=== PATIENT | female | born 1965 | race Caucasian/White ===

== ENCOUNTER → 2021-04-01 11:37 | Outpatient (BNVA) | payer MEDICARE, SELFPAY | PROVIDERS: Visit Provider Family Medicine | DX: M17.12 Unilateral primary osteoarthritis, left knee (principal); M16.0 Bilateral primary osteoarthritis of hip; M25.551 Pain in right hip; M25.552 Pain in left hip; M25.562 Pain in left knee | CPT/HCPCS: 73521; 73522; 73562 ==

== ENCOUNTER → 2021-06-15 14:17 | Outpatient (BNVA) | payer MEDICARE, SELFPAY | PROVIDERS: Referring Provider Family Medicine; Visit Provider Specialist | DX: M25.551 Pain in right hip (principal); M25.552 Pain in left hip; M16.0 Bilateral primary osteoarthritis of hip; Z98.890 Other specified postprocedural states | CPT/HCPCS: 73523 ==

== ENCOUNTER 2021-07-13 09:17 | Outpatient (CLI) | payer MEDICARE, SELFPAY ==
--- NOTE | 2021-07-13 09:21 | XR_ITS ---
WS: [id number] Exam: XR knees AP WB w LT lmt ORTH Date/Time of Exam: 07/13/2021 9:37 AM Reason For Exam: M25.569 - Pain in unspecified knee There is moderate tricompartmental degenerative change of the left knee most marked involving the med ial joint compartment. No fracture or dislocation. No joint effusion. AP view the right knee shows mi ld degenerative changes in the medial and lateral joint compartments. XR/XR knees AP WB w LT lmt ORTH IMPRESSION: 1. Moderate tricompartmental DJD of the left knee. No fracture or joint effusio n.
== END 2021-07-13 09:18 | disposition home or self-care (01) ==
LOC: RAD 09:20
PROVIDERS: PCP Family Medicine; Visit Provider Specialist
DX: M17.12 Unilateral primary osteoarthritis, left knee (principal)
CPT/HCPCS: 73560; 73565

== ENCOUNTER → 2021-07-21 09:24 | Outpatient (BNVA) | payer MEDICARE, SELFPAY | PROVIDERS: PCP Family Medicine; Referring Provider Specialist; Visit Provider Anesthesiology Pain Medicine | DX: G89.29 Other chronic pain (principal); M17.12 Unilateral primary osteoarthritis, left knee; M16.0 Bilateral primary osteoarthritis of hip; M43.26 Fusion of spine, lumbar region | CPT/HCPCS: 99204 ==

== ENCOUNTER → 2021-08-03 13:00 | Outpatient (BNVA) | payer MEDICARE, SELFPAY | PROVIDERS: PCP Family Medicine; Visit Provider Anesthesiology Pain Medicine | DX: Z87.891 Personal history of nicotine dependence (principal); M16.0 Bilateral primary osteoarthritis of hip | CPT/HCPCS: 20610; 77002; J1030; J3490 ==

== ENCOUNTER → 2021-09-01 10:11 | Outpatient (BNVA) | payer MEDICARE, SELFPAY | PROVIDERS: PCP Family Medicine; Visit Provider Anesthesiology Pain Medicine | DX: G89.29 Other chronic pain (principal); M16.0 Bilateral primary osteoarthritis of hip; M17.12 Unilateral primary osteoarthritis, left knee; M43.26 Fusion of spine, lumbar region; Z87.891 Personal history of nicotine dependence | CPT/HCPCS: 99214 ==

== ENCOUNTER → 2021-09-30 10:45 | Outpatient (BNVA) | payer MEDICARE, SELFPAY | PROVIDERS: PCP Family Medicine; Visit Provider Family Medicine | DX: I10 Essential (primary) hypertension (principal); E66.9 Obesity, unspecified; Z98.1 Arthrodesis status; Z90.49 Acquired absence of other specified parts of digestive tract; Z98.890 Other specified postprocedural states | CPT/HCPCS: 80053; 80061; 84443; 85025 ==

== ENCOUNTER 2022-01-28 07:25 | Outpatient (CLI) | payer MEDICARE, SELFPAY ==
--- NOTE | 2022-01-28 07:31 | MM_ITS ---
WS: [id number] BILATERAL SCREENING DIGITAL BREAST TOMOSYNTHESIS MAMMOGRAM WITH CAD HISTORY: SCREENING COMPARISON: None available. Bilateral CC and MLO views with tomosynthesis and synthetic mammography submitted. Computer aided det ection analyzed. Breast composition: The breasts are almost entirely fatty. No suspicious masses, microcalcifications or architectural distortion. MM/[place] [id number] IMPRESSION: BI-RADS: 1-Negative FOLLOW UP: 1 Year Follow-up
== END 2022-01-28 07:26 | disposition home or self-care (01) ==
LOC: RAD 07:26
PROVIDERS: PCP Family Medicine; Visit Provider Family Medicine
DX: Z12.31 Encounter for screening mammogram for malignant neoplasm of breast (principal)
CPT/HCPCS: 77063; 77067

== ENCOUNTER → 2022-06-14 10:42 | Outpatient (BNVA) | payer MEDICARE, SELFPAY | PROVIDERS: PCP Family Medicine; Visit Provider Specialist | DX: M16.11 Unilateral primary osteoarthritis, right hip (principal) | CPT/HCPCS: 73502; 99214 ==

== ENCOUNTER 2022-07-13 10:55 | Observation (INO) | payer MEDICARE, SELFPAY ==
[2022-07-05 08:19] VITALS: BMI 32.5
--- NOTE | 2022-07-05 08:52 | P.ANESASSM_ITS ---
Pre-Anesthetic Assessment Height/Weight: Height 1.7 m Weight 94.347 kg Preop Diagnosis: Severe degenerative osteoarthritis right hip Operation Date: 07/13/22 07:00 Proposed Procedures p : RIGHT TOTAL HIP ARTHROPLASTY 34487 M16.9(Right) - Faith Red MD Familial anesthetic complications: None Social No alcohol and No tobacco Exam alert, oriented x 3, clear to auscultation bilaterally and regular rate & rhythm Airway Mallampati: Class II Dentition: full Pulmonary None reported CV/HEM Hypertension None reported Hepatic None reported GI None reported Metabolic None reported Musc/skel Lower Back Pain and Osteoarthritis/DJD Anesthetic Plan ASA status: 2 Anesthesia: Regional (specify below) Other: spinal Risk of > 500 ml blood loss (7ml/kg in children): No Medications/Allergies Home Medications Medication Instructions Recorded Confirmed Last Taken Type gabapentin 600 mg tablet See Rx Instructions .Route 06/22/22 07/05/22 07/05/22 Rx .COMPLEX #90 tabs Allergies Allergy/AdvReac Type Severity Reaction Status Date / Time No Known Allergies Allergy Verified 06/14/22 10:37 [facility] Anesthesia Surgical History H/O discectomy H/O spinal fusion History of appendectomy History of oophorectomy Social History Smoking and tobacco status: former smoker Quit status (tobacco): has quit using tobacco Year quit tobacco: 2006 Former quit date comment: smoked 2-3 PPD x 30 yrs Second hand smoke exposure: Yes Alcohol intake: current Alcohol intake frequency: few times a week Alcohol type: hard liquor Desire information about alcohol rehabilitation?: No Counseling given: No Lives independently: Yes Household members: significant other Marital status: Life Partner Current occupational status: disabled History of recent travel: No Current gender identity: Female Special wilfredo needs: No Agree to transfusion: Yes Data Anesthesia Cardiac Studies: No Data to Display
[2022-07-05 09:06] LABS: Add Urine Microscopic? NO; Charge for UA Resulting for Rev
[2022-07-05 09:11] LABS: Bilirubin Urine Neg (Negative); Blood Urine Neg (Negative); Glucose Urine UA Norm (Normal); Ketones Urine Negative (Negative); Leukocyte Esterase Urine Negative (Negative); Nitrate Urine Negative (Negative); Protein Urine Neg (Negative); Urine Appearance Clear (CLEAR); Urine Color Yellow (Yellow); Urobilinogen Urine Norm (Negative); pH Urine 5 (5-7)
[2022-07-05 09:14] LABS: Basophils % 0.6 %; Eosinophils # 0.1 10^3/uL (0.0-0.8); Eosinophils % 1.9 %; Hematocrit 45.9 % (37.0-47.0); Hemoglobin 14.4 g/dL (11.5-15.3); Lymphocytes # 2.8 10^3/uL (0.8-4.8); Lymphocytes % 40.6 %; Mean Corpuscular HGB Conc 31.4 g/dL (30.0-36.0); Mean Corpuscular Hemoglobin 27.6 pg (28.0-34.0); Mean Corpuscular Volume 88.1 fl (81-99); Mean Platelet Volume 12.7 fL (7.4-10.4); Monocytes # 0.4 10^3/uL (0.2-0.9); Monocytes % 6.1 %; Neutrophils # 3.46 10^3/uL (1.8-7.7); Neutrophils % 50.7 %; Nucleated Red Blood Cells % 0 %; Platelet Count 203 10^3/cmm (130-400); Red Blood Count 5.21 10^6/uL (4.1-5.3); Red Cell Distribution Width 14.6 % (12.1-15.1); White Blood Count 6.8 10^3/uL (4.0-10.0)
[2022-07-05 09:25] LABS: Alanine Aminotransferase 12 U/L (0-33); Albumin Level 4.4 g/dL (3.5-5.2); Alkaline Phosphatase 88 U/L (35-105); Aspartate Amino Transferase 15 U/L (0-32); Blood Urea Nitrogen 20 mg/dL (6-20); Calcium 9.6 mg/dL (8.5-10.5); Carbon Dioxide 26 mmol/L (22-29); Chloride 105 mmol/L (98-107); Globulin 2.5 g/dL (1.3-4.6); Glomerular Filtration Rate 85.9 mL/min (90-130); Glucose 99 mg/dL (65-115); Osmolality Calculated 297 mOsm/kg (285-295); Sodium 142 mmol/L (136-145); Total Bilirubin 0.6 mg/dL (0.15-1.2); Total Protein 6.9 g/dL (6.6-8.7)
[2022-07-13] VITALS (15 sets, daily range): BP systolic 102–147; BP diastolic 68–102; PULSE 55–68; RESP 12–18; TEMP 36.1–36.6; O2SAT 95–100; BMI 32.5
[2022-07-13] MEDS: acetaminophen 1,000 MG/100 ML PIGGYBACK 400 MG IV ×3 (06:20→22:01)
[2022-07-13] MEDS: sodium chloride 0.9% 1,000 ML 30 ML IV (06:20)
[2022-07-13] MEDS: CELEcoxib 200 mg Capsule 400 MG PO (06:30)
--- NOTE | 2022-07-13 07:00 | P.HPUD_ITS ---
Surgery/Procedure H&P Update DATE OF PROCEDURE: July 13, 2022 DATE H&P PERFORMED: 06/14/22 H&P UPDATE INFORMATION: I have reviewed H&P completed within last 30 days, I have examined patient prior to procedure, No changes to prior documentation and H&P is in [facility] EMR on date indicated PREOP DIAGNOSIS: Severe degenerative osteoarthritis right hip PLANNED PROCEDURE: Operation Date: 07/13/22 07:00 Proposed Procedures p : RIGHT TOTAL HIP ARTHROPLASTY 26759 M16.9(Right) - Faith Red MD Related Problem List Diagnoses (1) Osteoarthritis of right hip: Qualifiers: Osteoarthritis type: primary Qualified Code(s): M16.11 - Unilateral primary osteoarthritis, right hip
--- NOTE | 2022-07-13 07:42 | P.ANESUD_ITS ---
Pre-Anesthetic Update Pre-Anesthetic Assessment: Date of Surgery/Procedure: 07/13/22 Preop Ramya gnosis: Severe degenerative osteoarthritis right hip Proposed Procedure: Operation Date: 07/13/22 07:00 Proposed Procedures p : RIGHT TOTAL HIP ARTHROPLASTY 95433 M16.9(Right) - Faith Red MD Any changes to Pre-Anesthetic Assessment?: No Last Intake: Intake Last Liquid Date 07/12/22 Last Liquid Time 19:00 Last Solid Date 07/12/22 Last Solid Time 19:00 Vitals: Temperature 97 F L 07/13/22 06:45 Temperature Source Temporal Artery S can 07/13/22 06:45 Pulse Rate 68 07/13/22 06:45 Pulse Rhythm 07/13/22 06:45 Pulse Strength 3+ Normal 07/13/22 06:45 Respiratory Rate 18 07/13/22 06:45 Blood Pressure 147/102 07/13/22 06:45 Blood Pressure Amber n 117 07/13/22 06:45 Pulse Oximetry 97 07/13/22 06:45 Oxygen Delivery Me thod 07/13/22 06:45 Exam: Pre-Anes Outpt Exam: alert, oriented x 3, clear to auscultation bilaterally and regular rate & rhythm Cardiac Studies: No Data to Display
[2022-07-13] MEDS: ceFAZolin 2,000 MG in sodium chloride 0.9% (plus) 50 ML 100 MG IV ×3 (08:12→23:53)
[2022-07-13] MEDS: ceFAZolin 1,000 mg SDV 1000 MG IRRIGATION (09:03)
[2022-07-13] MEDS: vancomycin 1,000 MG SDV 1000 MG XX (09:03)
[2022-07-13] MEDS: tranexamic acid 1,000 mg/10mL SDV 1000 MG IV (09:50)
--- NOTE | 2022-07-13 10:14 | XR_ITS ---
WS: [id number] Pelvis, AP view, 07/13/2022 Clinical Data: S/P CANDIE Comparison: Pelvis and right hip, 06/14/2022 Findings: The right hip arthroplasty is in good position. No periprosthetic fractures or loosening is seen. The re is severe osteoarthritis of the left hip with sclerosis, cyst formation and narrowing. There is a posterior lumbosacral fusion unchanged. XR/XR pelvis 1-2V* [id number] Impression: Stable right hip arthroplasty.
--- NOTE | 2022-07-13 10:57 | PM.OP ---
Operative Report Date of procedure: July 13, 2022 Pre-op diagnosis: Severe degenerative osteoarthritis right hip Post-op diagnosis: 1) Severe degenerative osteoarthritis right hip 2) Large lipoma Post-op findings: 1) Severe degenerative osteoarthritis with large osteophytes and very limited range of motion of the hip even after anesthetic. 2) Large lipoma Procedure done: 1) Right total hip arthroplasty 2) Excision lipoma right hip Implants: The [place] total hip system with the following implants: A 52 mm by E Trident II solid back acetabular shell, an MDM cementless liner 42 mm inner diameter by E alpha code and Accolade II size 5 with 127 degree neck angle hip stem with a 28 mm outer diameter +0 mm neck offset and a latter-day X3 insert size 28 mm inner diameter by 42E Specimens removed/disposition: Lipoma sent to pathology for analysis Pathology: Frozen section appeared consistent with lipoma per pathology Surgeon: Faith Red Mail Service Coordinator: [facility] operating room technicians Anesthesia: MAC (Spinal, ASA 2) Estimated blood loss (mL): 500 IV fluids (mL): 1,300 Urine output (mL): 200 Complications: None Findings: Large lipoma lateral over the right hip requiring excision. This was sent to pathology. Severe degenerative osteoarthritis with large osteophytes and essentially no range of motion of the hip due to osteophytes and severe degenerative osteoarthritis. Following the surgical procedure, the hip was stable to external rotation. It was also stable at 90 degrees of flexion with 80 degrees of internal rotation and 30 degrees of adduction. It was stable to toe hang as well. Condition: stable Disposition: PACU (Then to floor for postoperative rehabilitation and pain management) Brief History: This is an established 56 year old female patient here today for right total hip arthroplasty. Patient was evaluated over a year ago by Dr. Red and was told she was a candidate for a right total hip arthroplasty at that time. She states she has lost approximately 50lbs in preparation for her total hip arthroplasty. She is ready to proceed with surgery, and when she was seen in the office, consents were signed and questions were answered. Upon arrival to clinic patient was utilizing a cane. She states her pain is worse with walking, sitting and standing. She has tried a hip injection in the past with relief for only a few weeks. Consents were signed and the patient was scheduled for surgery. Procedure: Patient was brought to the operating theater.? She was transferred to the operating room table.? The patient had a spinal anesthesia with MAC, ASA 2 uneventfully.? Following administration of adequate anesthesia, the patient was placed in full lateral position and held in position with a pegboard.? The patient's right lower extremity was then prepped and draped in usual fashion utilizing DuraPrep.? It was draped free.? Following prepping and draping, a surgical pause was performed. At the time of surgical pause, we identified the site and side of surgery.? We also identified the patient and preoperative surgical markings.? Confirmation was made of equipment availability.? Additionally, the patient's preoperative IV antibiotic, Ancef 2 g was confirmed as being given in a timely fashion and being the appropriate antibiotic.? She received TXA 1 g preoperatively as well 1 g postoperatively. Following the surgical pause, an incision was made centering over the patient's greater trochanter continuing proximally and distally as necessary to allow access to the hip joint.? Dissection continued through skin and soft tissues using a scalpel, and hemostasis was obtained using electrocautery. There was a large soft tissue mass that appeared consistent with lipoma. This was removed en julissa and sent for frozen section to pathology. The pathologist called into the room and stated that there did not appear to be any issues of concern. The tensor fascia domitila was identified and incised longitudinally.? Sciatic nerve was identified and protected throughout the surgical procedure.? A Charnley U retractor was placed after the tensor fascia domitila had been incised longitudinally, and the sciatic nerve had been identified.? The piriformis muscle was identified and tagged. Piriformis muscle along with the remaining short external rotators were then incised from the posterior aspect of the hip joint. These were retracted posteriorly. ? The capsule was entered in a T-type fashion with the edges being tagged.? Large osteophytes were removed from superior and posterior acetabulum. These actually encased the femoral head. The hip was then dislocated.? The head was noted to be very deformed with significant loss of bone and cartilage.? Following hip dislocation, a femoral neck osteotomy was accomplished in the appropriate position.? We then evaluated the acetabulum. Following femoral neck osteotomy, the femur was retracted anteriorly.? Soft tissues were retracted, and further large osteophytes were removed both anteriorly and posteriorly. Soft tissues were removed from within the acetabulum prior to the reaming process.? We then began reaming.? We deepened the acetabulum utilizing a smaller reamer.? Evaluation of the acetabulum was accomplished, and we were able to ream to 51 mm to allow for a size 52 mm acetabular shell. The acetabular component was impacted into position.? It was noted that the acetabular component matched the bony anatomy.? The MDM cementless liner was impacted into position and care was taken to assure that it completely seated.? Attention was directed to the proximal femur.? The proximal femur was lifted out of the wound with difficulty.? A canal finder was passed, and we then used the reamer to lateralize.? We then began broaching. We broached sequentially and a size 5 gave excellent fit and fill.? The calcar was reamed using the calcar reamer. With the size 5 broach, trial reduction was accomplished initially with a size +0 mm offset femoral head.? The patient was stable with this construct, and with this in place, we had the above stabilities. At that time, we felt that we had restored normal leg lengths.? We also felt that we had excellent stability noted above. Therefore, trial components were removed after the hip was dislocated.? The size 5 Accolade II 127 degree neck angle hip stem was impacted into position without difficulty and onto this was placed a +0 mm offset by 28 mm outer diameter femoral head inside of the MDM size 42E insert with a 28 mm inner diameter.? With this construct, we had the above-noted stability.? The stem was noted to seat nicely prior to placement of the femoral head.? The wound was copiously irrigated with Betadine.? At this time, with all components in appropriate position, the hip was reduced.? Following reduction of the prosthesis once again, we confirmed the stability of the hip.? Leg lengths were also felt to be satisfactory. Being satisfied with the prosthesis, attention was directed to closure.? Closure was accomplished with 0 Vicryl in the capsular tissues.? Piriformis was reattached with 0 Vicryl as well.? Tensor fascia domitila was closed with 0 Vicryl in an interrupted fashion.? The subcutaneous tissues were closed with 2-0 Monocryl.? Vancomycin powder and a Gelfoam thrombin mixture was placed into the wound as well.? The skin was closed with 3-0 Monocryl followed by Dermabond, Prinestorm, and Issac.? The patient was placed in an abduction pillow.?The patient was then rolled onto her back.? She was returned the Recovery Room in a satisfactory condition and will be discharged to the floor for postoperative rehabilitation and pain management.? There were no complications. Related Problem List Diagnoses (1) Osteoarthritis of right hip:
--- NOTE | 2022-07-13 11:07 | SUR.PHASEI ---
1036 PT TO PACU 5 PT AWAKE ALERT TALKATIVE, VSS MONITOR SR TO SB WITH NO ECTOPY, PT WAS A SPINAL ANESTHESIA, PT HAS NORMAL SENSATION TO LOWER HIP AREA, PT MOVES BILAT KNEES AND FEET STRONGLY, DISTAL RT PULSE STRONG AND REGULAR AND MARKED RT HIP INCISION D/I FIRST ICE TO HIP ABD PILLOW IN PLACE WITH MOYA TO DEPENDANT DRAINAGE STATLOCK TO LT INNER THIGH, SCD TO LT LOWER LEG. IV TO RT AC #20 PATENT TO 800ML NS AT KVO RATE PER GRAVITY, ID BRACELET TO RT WRIST, PT ID'D WITH 2 IDENTIFIERS, WARM BLANKETS X 4 TO PT, X RAY CALLED PT VERBALLY DENIES PAIN AND NAUSEA, ORIENTED X 3.
--- NOTE | 2022-07-13 11:50 | SUR.PHASEI ---
PT TO FLOOR 259-2 PER BED PT AWAKE ALERT ABLE TO MOVE BILAT TOES STRONGLY, RT HIP DRESSING AND PULSE UNCHANGED , HANDOFF AT BEDSIDE, PT TALKATIVE TO [place] AT BEDSIDE.
[2022-07-13] MEDS: oxyCODONE 5 mg IR Tab/Cap PO ×2 (14:04→19:00)
[2022-07-13] MEDS: gabapentin 300 mg Capsule 600 MG PO ×2 (14:05→19:56)
[2022-07-13] MEDS: chlorhexidine gluconate 0.12% Btl 473 mL 30 ML MUCOUS MEM ×3 (14:10→19:56)
--- NOTE | 2022-07-13 14:14 | ANE.PACU2 ---
Inpatient post-anesthesia follow up: Airway intact: Yes Vital signs: Temperature 97.3 F Pulse Rate 68 Respiratory Rate 16 Blood Pressure 128/78 Pulse Oximetry 99 Oxygen Delivery Me thod Room Air Oxygen Flow Rate Fraction of Inspir ed Oxygen Hydration adequate: Yes Nausea and vomiting: No Pain level: 2 Mental status: Baseline
[2022-07-13] MEDS: ondansetron 2 mg/ML SDV 2 mL 4 MG IVP (16:12)
[2022-07-13] MEDS: sennosides-docusate Tablet 2 TAB PO (17:20)
[2022-07-13] MEDS: calcium carbonate 500 mg Chew Tablet 1000 MG PO (17:21)
[2022-07-13] MEDS: iron polysaccharide complex 150 mg Capsule PO (17:21)
[2022-07-13] MEDS: mupirocin oint 22 gm 1 APPLIC NASAL (17:21)
[2022-07-13] MEDS: CELEcoxib 200 mg Capsule PO (19:55)
[2022-07-14 00:02] VITALS: BP 108/68; PULSE 62; RESP 16; TEMP 37; O2SAT 96
[2022-07-14 03:57] VITALS: BP 98/63; PULSE 68; RESP 16; TEMP 36.8; O2SAT 95
[2022-07-14 04:55] VITALS: RESP 16
[2022-07-14] MEDS: oxyCODONE 5 mg IR Tab/Cap PO ×2 (04:55→08:44)
[2022-07-14] MEDS: acetaminophen 1,000 MG/100 ML PIGGYBACK 400 MG IV (04:55)
--- NOTE | 2022-07-14 05:05 | PC.NURSE ---
Patient's barragan catheter removed approximately 0500. Patient tolerated well, catheter tip intact upon removal. Urine in barragan bag measured 400ml. Patient reported pain 8/10, oxycodone provided for pain relief. Patient reported no nausea or vomiting but has only tolerated clear liquids, has no report of appetite. Dressing site on right hip dry and intact upon inspection, ice applied. Patient currently resting in bed, two side rails up and call light within reach.
[2022-07-14 05:59] LABS: Basophils % 0.4 %; Eosinophils # 0.1 10^3/uL (0.0-0.8); Eosinophils % 1.6 %; Hematocrit 36.6 % (37.0-47.0); Hemoglobin 11.6 g/dL (11.5-15.3); Lymphocytes # 1.8 10^3/uL (0.8-4.8); Lymphocytes % 36.2 %; Mean Corpuscular HGB Conc 31.7 g/dL (30.0-36.0); Mean Corpuscular Hemoglobin 27.7 pg (28.0-34.0); Mean Corpuscular Volume 87.4 fl (81-99); Mean Platelet Volume 12.3 fL (7.4-10.4); Monocytes # 0.5 10^3/uL (0.2-0.9); Monocytes % 9.1 %; Neutrophils # 2.64 10^3/uL (1.8-7.7); Neutrophils % 52.5 %; Nucleated Red Blood Cells % 0 %; Platelet Count 137 10^3/cmm (130-400); Red Blood Count 4.19 10^6/uL (4.1-5.3); Red Cell Distribution Width 14.3 % (12.1-15.1)
[2022-07-14 06:24] LABS: Blood Urea Nitrogen 9 mg/dL (6-20); Carbon Dioxide 29 mmol/L (22-29); Chloride 106 mmol/L (98-107); Glomerular Filtration Rate 126.7 mL/min (90-130); Glucose 107 mg/dL (65-115); Osmolality Calculated 291 mOsm/kg (285-295); Sodium 141 mmol/L (136-145)
[2022-07-14 07:52] VITALS: PULSE 60; O2SAT 97
[2022-07-14 08:02] VITALS: BP 104/60; PULSE 60; RESP 17; TEMP 36.6; O2SAT 94
[2022-07-14] MEDS: cholecalciferol (vitamin D3) 1,000 unit Tablet 1000 UNIT PO (08:45)
[2022-07-14] MEDS: ceFAZolin 2,000 MG in sodium chloride 0.9% (plus) 50 ML 50 MG IV (08:45)
[2022-07-14] MEDS: iron polysaccharide complex 150 mg Capsule PO (08:46)
[2022-07-14] MEDS: gabapentin 300 mg Capsule 600 MG PO (08:46)
[2022-07-14] MEDS: multivitamin therapeutic Tablet 1 TAB PO (08:47)
[2022-07-14] MEDS: amlodipine 5 mg Tablet PO (08:47)
[2022-07-14] MEDS: CELEcoxib 200 mg Capsule PO (08:47)
[2022-07-14] MEDS: aspirin 325 mg EC Tablet PO (08:47)
[2022-07-14] MEDS: sennosides-docusate Tablet 2 TAB PO (08:47)
[2022-07-14] MEDS: mupirocin oint 22 gm 1 APPLIC NASAL (08:47)
[2022-07-14] MEDS: atorvastatin 40 mg Tablet 20 MG PO (08:47)
[2022-07-14] MEDS: calcium carbonate 500 mg Chew Tablet 1000 MG PO (08:48)
[2022-07-14] MEDS: chlorhexidine gluconate 0.12% Btl 473 mL 30 ML MUCOUS MEM (08:48)
--- NOTE | 2022-07-14 09:11 | PM.DCS ---
Discharge Providers Date of Admission: 07/13/22 10:55 Date of Discharge: July 14, 2022 Attending Provider at Admission: Faith Red MD Attending Provider at Discharge: Faith Red MD Primary Care Provider: Akilah Sims MD Diagnoses at Discharge Discharge Diagnosis (1) History of total right hip arthroplasty: Status: Acute Permanent problem details: Date of procedure: July 13, 2022 Diagnosis: 1) Severe degenerative osteoarthritis right hip; 2) Large lipoma Procedure done: 1) Right total hip arthroplasty; 2) Excision lipoma right hip Implants: The [employer] total hip system with the following implants: A 52 mm by E Trident II solid back acetabular shell, an MDM cementless liner 42 mm inner diameter by E alpha code and Accolade II size 5 with 127 degree neck angle hip stem with a 28 mm outer diameter +0 mm neck offset and a restorationist X3 insert size 28 mm inner diameter by 42E (2) Lipoma of right lower extremity: Status: Acute (3) Osteoarthritis of right hip: Status: Acute Qualifiers: Osteoarthritis type: primary Qualified Code(s): M16.11 - Unilateral primary osteoarthritis, right hip (4) Obesity (BMI 35.0-39.9 without comorbidity): Status: Acute Reason for Visit Reason for Visit: surgery Brief History: This is an established 56 year old female patient here today for right total hip arthroplasty. Patient was evaluated over a year ago by Dr. Red and was told she was a candidate for a right total hip arthroplasty at that time. She states she has lost approximately 50lbs in preparation for her total hip arthroplasty. She is ready to proceed with surgery, and when she was seen in the office, consents were signed and questions were answered. Upon arrival to clinic patient was utilizing a cane. She states her pain is worse with walking, sitting and standing. She has tried a hip injection in the past with relief for only a few weeks.? Consents were signed and the patient was scheduled for surgery. Hospital Course Hospital Course Patient was admitted following same-day surgery for right total hip arthroplasty. She was admitted under observation status, and she participated with physical therapy doing quite well. Her independence improved, and she was felt to be safe to be discharged to home. Her wound was benign. There was no evidence of DVT. She was neurologically intact. She was actually more mobile than she had been prior to her surgical procedure. She was felt to be safe for discharge to home and therefore, on postop day 1, the patient was discharged home to follow-up with me in the office as scheduled. Physical Exam Const: COMMON NORMALS: no acute distress, average body habitus, patient oriented x3 and alert GENERAL APPEARANCE: cooperative and comfortable ORIENTATION/CONSCIOUSNESS: Yes awake HENMT: COMMON NORMALS: normocephalic and atraumatic HEAD & SCALP: normocephalic and atraumatic Eye: GENERAL EYE: appearance normal, both eyes and all related structures Chest: COMMONS NORMALS: normal inspection of the chest Resp: COMMON NORMALS: normal respiratory effort EFFORT & INSPECTION: Yes able to speak in complete sentences and Yes symmetric chest movement Extremity: RIGHT LOWER EXTREMITY: Yes hip joint (No significant swelling or evidence of DVT) Right hip: Yes inspection (Thigh was soft with no ecchymosis.), Yes palpation (No tenderness to palpation.) and Yes neurovascular exam (Intact distally.) Neuro: COMMON NORMALS: patient oriented x3 SENSORIUM/ORIENTATION: Yes alert Psych: COMMON NORMALS: mental status grossly normal APPEARANCE: Yes grossly normal ATTITUDE: Yes calm and Yes engaged ATTENTION/CONCENTRATION: Yes attention grossly intact Skin: COMMON NORMALS: no rashes or lesions noted GENERAL SKIN EXAM: no rashes or lesions noted Urinary Catheter Management: Nayak: Cath Placed During This Visit: yes, but has since been removed by the nurse Reason for Continuing Indwelling Catheter: Other Urinary Catheter Date of Insertion: 07/13/22 Urinary Catheter Time of Insertion: 07:32 Date Urinary Catheter Removed: 07/14/22 Time Urinary Catheter Discontinued: 05:05 Discharge Data Studies Completed and Pending Completed Studies During Hospitalization Category Date Time Status XR pelvis 1-2V* 40615 Routine Exams 07/13/22 10:14 Completed Pending at discharge Category Date Time Status Pathology: Surgical [PTH] Routine Pth 07/13/22 08:21 Received Radiology Impressions Pelvis X-Ray 07/13/22 10:14 Impression: Stable right hip arthroplasty. Laboratory Results WBC 5.0 10^3/uL (4.0-10.0) 07/14/22 05:30 RBC 4.19 10^6/uL (4.1-5.3) 07/14/22 05:30 Hgb 11.6 g/dL (11.5-15.3) 07/14/22 05:30 Hct 36.6 % (37.0-47.0) L 07/14/22 05:30 MCV 87.4 fl (81-99) 07/14/22 05:30 MCH 27.7 pg (28.0-34.0) L 07/14/22 05:30 MCHC 31.7 g/dL (30.0-36.0) 07/14/22 05:30 RDW 14.3 % (12.1-15.1) 07/14/22 05:30 Plt Count 137 10^3/cmm (130-400) 07/14/22 05:30 MPV 12.3 fL (7.4-10.4) H 07/14/22 05:30 Neut % (Auto) 52.5 % 07/14/22 05:30 Lymph % (Auto) 36.2 % 07/14/22 05:30 Bates % (Auto) 9.1 % 07/14/22 05:30 Eos % (Auto) 1.6 % 07/14/22 05:30 Baso % (Auto) 0.4 % 07/14/22 05:30 Neut # (Auto) 2.64 10^3/uL (1.8-7.7) 07/14/22 05:30 Lymph # (Auto) 1.8 10^3/uL (0.8-4.8) 07/14/22 05:30 Bates # (Auto) 0.5 10^3/uL (0.2-0.9) 07/14/22 05:30 Eos # (Auto) 0.1 10^3/uL (0.0-0.8) 07/14/22 05:30 Baso # (Auto) 0.0 10^3/uL (0.0-0.1) 07/14/22 05:30 Nucleated RBC % (auto) 0 % 07/14/22 05:30 Nucleated RBCs # 0.0 /100WBC 07/14/22 05:30 Sodium 141 mmol/L (136-145) 07/14/22 05:30 Potassium 4.0 mmol/L (3.5-5.1) 07/14/22 05:30 Chloride 106 mmol/L (98-107) 07/14/22 05:30 Carbon Dioxide 29 mmol/L (22-29) 07/14/22 05:30 Anion Gap 10.0 (5-19) 07/14/22 05:30 BUN 9 mg/dL (6-20) 07/14/22 05:30 Creatinine 0.5 mg/dL (0.5-0.9) 07/14/22 05:30 GFR Calculation 126.7 mL/min (90-130) 07/14/22 05:30 Glucose 107 mg/dL (65-115) 07/14/22 05:30 Calculated Osmolality 291 mOsm/kg (285-295) 07/14/22 05:30 Calcium 8.0 mg/dL (8.5-10.5) L 07/14/22 05:30 Total Bilirubin 0.6 mg/dL (0.15-1.2) 07/05/22 08:15 AST 15 U/L (0-32) 07/05/22 08:15 ALT 12 U/L (0-33) 07/05/22 08:15 Alkaline Phosphatase 88 U/L (35-105) 07/05/22 08:15 Total Protein 6.9 g/dL (6.6-8.7) 07/05/22 08:15 Albumin 4.4 g/dL (3.5-5.2) 07/05/22 08:15 Globulin 2.5 g/dL (1.3-4.6) 07/05/22 08:15 Urine Color Yellow (Yellow) 07/05/22 08:15 Urine Appearance Clear (CLEAR) 07/05/22 08:15 Urine pH 5 (5-7) 07/05/22 08:15 Ur Specific [place] 1.020 (1.005-1.030) 07/05/22 08:15 Urine Protein Neg (Negative) 07/05/22 08:15 Urine Glucose (UA) Norm (Normal) 07/05/22 08:15 Urine Ketones Negative (Negative) 07/05/22 08:15 Urine Blood Neg (Negative) 07/05/22 08:15 Urine Nitrate Negative (Negative) 07/05/22 08:15 Urine Bilirubin Neg (Negative) 07/05/22 08:15 Urine Urobilinogen Norm mg/dL (Negative) 07/05/22 08:15 Ur Leukocyte Esterase Negative (Negative) 07/05/22 08:15 Vitals Last Vital Signs Temp 97.9 F 07/14/22 08:02 Pulse 60 07/14/22 08:02 Resp 17 07/14/22 08:02 BP 104/60 07/14/22 08:02 Pulse Ox 94 07/14/22 08:02 O2 Del Method 07/14/22 08:02 Discharge Plan Discharge Patient Disposition: Home Health Service Condition: Stable Prescriptions: New celecoxib 200 mg Capsule 200 mg PO Q12H 30 Days Qty: 60 0RF acetaminophen 500 mg Tablet 1,000 mg PO Q8H 30 Days Qty: 180 0RF aspirin 325 mg Tablet,Delayed Release (Dr/Ec) 325 mg PO DAILY 30 Days Qty: 30 0RF Rx Instructions: Meds to beds. Please deliver by 10:30 AM. oxycodone 5 mg tablet 5 mg PO Q4H PRN (Reason: pain) 7 Days Qty: 30 0RF Continued amlodipine 5 mg tablet 5 mg PO DAILY rosuvastatin 5 mg tablet 5 mg PO DAILY gabapentin 600 mg tablet See Rx Instructions .ROUTE .COMPLEX Qty: 90 1RF Dose Instruction: TAKE 1 TABLET BY MOUTH THREE TIMES DAILY Rx Instructions: TAKE 1 TABLET BY MOUTH THREE TIMES DAILY Discharge Orders: Discharge Order (Routine); Ordered 07/14/22 Ordered By: Faith Red Other Ambulatory Orders: DME: Walker (Order) Location: None Selected Ordered By: Faith Red Referrals: Faith Red MD [Physician] - 07/28/22 8:15 am Discharge Diet: Advance as tolerated and Usual diet Discharge Activity: Increase activity as tolerated, Limit activity as instructed, Use walker/crutches as instructed and As per PT/OT instructions Patient Instructions: Aspirin (By mouth), Oxycodone, Rapid Release (By mouth), Celecoxib (By mouth), Total Hip Replacement (GEN), Joint Replacement Stoplight, Opioid Safety Activity Restrictions/Additional Instructions: Posterior hip precautions. Weight-bear as tolerated. Maintain dressing until it comes off. You may shower, but do not soak your hip in water. Use walker or other assistive device per physical therapy. Discharge Attestations Time Spent in Discharge Care*: greater than 30 min Specific Discharge Activities: educating patient, documenting/other paperwork and evaluating patient/reviewing data Quality Metrics Clinical Quality Measures [ No reported AMI, CVA or VTE this stay] Coding Level of Care Code Acute [facility] note Diagnoses History of total right hip arthroplasty Z96.641 Lipoma of right lower extremity D17.23 Osteoarthritis of right hip M16.11 Osteoarthritis type: primary Obesity (BMI 35.0-39.9 without comorbidity) E66.9
--- NOTE | 2022-07-14 11:29 | PC.NURSE ---
patient verbalized understanding of discharge instructions, home medications, and follow up appointments. Dr. Red notified that patient would be unable to fill oxycodone prescription here, and she sent a new prescription to [facility]. Home delivered patients walker to the bedside.
[2022-07-14 12:50] VITALS: BP 104/60; PULSE 60; RESP 17; TEMP 36.6; O2SAT 94
== END 2022-07-14 12:00 | disposition home health service (06) ==
LOC: MEDSURG 10:55
PROVIDERS: Admitting Provider Specialist; PCP Family Medicine; Visit Provider Specialist
PROC: (CPT 27130; principal; 2022-07-13 07:00)
PROC: (CPT 27043; 2022-07-13 07:00)
DX: M16.11 Unilateral primary osteoarthritis, right hip (principal); R26.9 Unspecified abnormalities of gait and mobility; D17.23 Benign lipomatous neoplasm of skin and subcutaneous tissue of right leg; E66.9 Obesity, unspecified; Z68.32 Body mass index [BMI] 32.0-32.9, adult; I10 Essential (primary) hypertension
CPT/HCPCS: 27043; 27130; 36415; 51702; 72170; 80048; 80053; 81003; 85025; 88307; 88331; 97110; 97116; 97162; 97166; 97530; 97535; C1776; G0378; J0131; J0690; J2250; J2370; J2405; J2704; J3010; J3370; J3490; J7030

== ENCOUNTER → 2022-08-24 11:02 | Outpatient (BNVA) | payer MEDICARE, SELFPAY | PROVIDERS: PCP Family Medicine; Visit Provider Nurse Practitioner Family | DX: Z96.641 Presence of right artificial hip joint (principal) | CPT/HCPCS: 73502; 99024 ==

== ENCOUNTER 2022-09-24 14:57 | Emergency (ER) | payer MEDICARE, SELFPAY ==
[2022-09-24 14:58] VITALS: BP 168/90; PULSE 74; RESP 15; O2SAT 97
--- NOTE | 2022-09-24 15:15 | W.ED.DIZZY ---
HPI - Dizziness General: Chief Complaint: Dizziness Stated Complaint: HYPERTENSION Time Seen by Provider: 09/24/22 15:15 History of Present Illness: HPI Narrative: Ms. Still is a 56-year-old lady with history of hypertension presenting to the emergency department for headache with visual disturbance. She reports being at her baseline health and awoke this morning noting that her blood pressure was high and has a frontal constant headache associated with bilateral blurry vision. She took her amlodipine and then repeated doses with mild improvement in blood pressure however no improvement in another symptoms. Intensity symptoms is moderate. Course has persisted. No other specific changes in health, exacerbating, or alleviating factors identified. Onset (ago): hour(s) Timing: awoke with symptoms Severity: moderate Exacerbating factors: keeping eyes open Relieving factors: nothing Associated symptoms: Reports headache(s) and malaise Associated neuro symptoms: Reports visual changes; Deny confusion, difficulty speaking, diplopia, extremity weakness, facial numbness, facial weakness, gait changes or numbness in extremities Review of Systems General: Reports: 10 or more systems reviewed and unremarkable except in HPI and below Const: Reports: malaise Neuro: Reports: headache(s); Denies: numbness in extremities or confusion PFSH ED PFSH: Surgical History H/O discectomy H/O spinal fusion History of appendectomy History of oophorectomy Social History Smoking and tobacco status: former smoker Quit status (tobacco): has quit using tobacco Year quit tobacco: 2006 Former quit date comment: smoked 2-3 PPD x 30 yrs Second hand smoke exposure: Yes Alcohol intake: current Alcohol intake frequency: few times a week Alcohol type: hard liquor Desire information about alcohol rehabilitation?: No Counseling given: No Lives independently: Yes Household members: significant other Marital status: Life Partner Current occupational status: disabled Current gender identity: Female Special wilfredo needs: No Agree to transfusion: Yes Physical Exam Const: COMMON NORMALS: patient oriented x3 and alert GENERAL APPEARANCE: cooperative and well developed HENMT: COMMON NORMALS: normocephalic and atraumatic HEAD & SCALP: normocephalic and atraumatic THROAT: posterior oropharynx normal Eye: COMMON NORMALS: conjunctivae normal CONJUNCTIVA: Yes conjunctivae normal SCLERA: sclerae normal Neck/C-Spine: COMMON NORMALS: supple GENERAL: Yes trachea midline Resp: COMMON NORMALS: normal respiratory effort and clear to auscultation bilaterally EFFORT & INSPECTION: Yes able to speak in complete sentences AUSCULTATION: clear to auscultation bilaterally Cardio: COMMON NORMALS: regular rate and regular rhythm RATE: regular rate RHYTHM: regular rhythm GI: COMMON NORMALS: Soft to palpation PALPATION: Yes Soft to palpation and No Tenderness to palpation present (GI) Extremity: GENERAL: Yes normal exam except as noted and No edema Neuro: COMMON NORMALS: patient oriented x3, CN's II-XII intact bilaterally, moves all extremities, no focal motor deficits and no sensory deficits noted SENSORIUM/ORIENTATION: Yes alert and No Orientation impaired Psych: COMMON NORMALS: mental status grossly normal and Normal thought process present THOUGHT PROCESS: Normal thought process present Course Vital Signs: Vital signs: Vital Signs Pulse Rate 68 09/24/22 17:32 Respiratory Rate 16 09/24/22 17:32 Blood Pressure 142/86 09/24/22 17:32 Pulse Oximetry 97 09/24/22 17:32 Oxygen Delivery Me thod Room Air 09/24/22 16:15 MDM - Dizziness Medical Decision Making 57-year-old lady presenting to the emerged department for headache and dizziness as well as high blood pressure. Exam as above with no focal neurologic deficits, patient is nontoxic in appearance. No meningismus Labs with no significant hematologic or metabolic abnormalities. No UTI. Head CT with no acute intracranial pathology identified. Patient markedly improved with improvement in blood pressure and headache with migraine cocktail. Symptoms have essentially resolved. Most likely etiology of patient's symptoms is multifactorial including hypertension and complex headache. Plan to add hydralazine to patient's medication regimen as needed. The results of ED evaluation were discussed with the patient including prescriptions and/or symptomatic cares (if applicable) including appropriate and responsible use, followup plan, and return precautions. The patient verbalized understanding and felt safe for discharge. Medical Records I reviewed the patient's medical records. Lab Data I reviewed the patient's lab results. 09/24/22 15:16 09/24/22 15:[address] 09/24/22 15:33 IMPRESSION: No CT evidence of acute intracranial pathology. Laboratory Results WBC 5.8 10^3/uL (4.0-10.0) 09/24/22 15:16 RBC 4.91 10^6/uL (4.1-5.3) 09/24/22 15:16 Hgb 13.0 g/dL (11.5-15.3) 09/24/22 15:16 Hct 42.6 % (37.0-47.0) 09/24/22 15:16 MCV 86.8 fl (81-99) 09/24/22 15:16 MCH 26.5 pg (28.0-34.0) L 09/24/22 15:16 MCHC 30.5 g/dL (30.0-36.0) 09/24/22 15:16 RDW 14.7 % (12.1-15.1) 09/24/22 15:16 Plt Count 156 10^3/cmm (130-400) 09/24/22 15:16 MPV 11.5 fL (7.4-10.4) H 09/24/22 15:16 Neut % (Auto) 65.4 % 09/24/22 15:16 Lymph % (Auto) 25.6 % 09/24/22 15:16 [place] % (Auto) 6.9 % 09/24/22 15:16 Eos % (Auto) 1.4 % 09/24/22 15:16 Baso % (Auto) 0.5 % 09/24/22 15:16 Neut # (Auto) 3.81 10^3/uL (1.8-7.7) 09/24/22 15:16 Lymph # (Auto) 1.5 10^3/uL (0.8-4.8) 09/24/22 15:16 [place] # (Auto) 0.4 10^3/uL (0.2-0.9) 09/24/22 15:16 Eos # (Auto) 0.1 10^3/uL (0.0-0.8) 09/24/22 15:16 Baso # (Auto) 0.0 10^3/uL (0.0-0.1) 09/24/22 15:16 Nucleated RBC % (auto) 0 % 09/24/22 15:16 Nucleated RBCs # 0.0 /100WBC 09/24/22 15:16 Sodium 141 mmol/L (136-145) 09/24/22 15:16 Potassium 4.0 mmol/L (3.5-5.1) 09/24/22 15:16 Chloride 106 mmol/L (98-107) 09/24/22 15:16 Carbon Dioxide 26 mmol/L (22-29) 09/24/22 15:16 Anion Gap 13.0 (5-19) 09/24/22 15:16 BUN 15 mg/dL (6-20) 09/24/22 15:16 Creatinine 0.5 mg/dL (0.5-0.9) 09/24/22 15:16 GFR Calculation 126.7 mL/min (90-130) 09/24/22 15:16 Glucose 92 mg/dL (65-115) 09/24/22 15:16 Calculated Osmolality 292 mOsm/kg (285-295) 09/24/22 15:16 Calcium 8.6 mg/dL (8.5-10.5) 09/24/22 15:16 Total Bilirubin 0.5 mg/dL (0.15-1.2) 09/24/22 15:16 AST 15 U/L (0-32) 09/24/22 15:16 ALT 11 U/L (0-33) 09/24/22 15:16 Alkaline Phosphatase 71 U/L (35-105) 09/24/22 15:16 NT-Pro-B Natriuret Pep 123 pg/mL (0-125) 09/24/22 15:16 Total Protein 6.4 g/dL (6.6-8.7) L 09/24/22 15:16 Albumin 3.9 g/dL (3.5-5.2) 09/24/22 15:16 Globulin 2.5 g/dL (1.3-4.6) 09/24/22 15:16 TSH 0.86 uIU/mL (0.27-4.20) 09/24/22 15:16 Urine Color Straw (Yellow) 09/24/22 15:12 Urine Appearance Clear (CLEAR) 09/24/22 15:12 Urine pH 7 (5-7) 09/24/22 15:12 Ur Specific [place] 1.010 (1.005-1.030) 09/24/22 15:12 Urine Protein Neg (Negative) 09/24/22 15:12 Urine Glucose (UA) Norm (Normal) 09/24/22 15:12 Urine Ketones Negative (Negative) 09/24/22 15:12 Urine Blood Neg (Negative) 09/24/22 15:12 Urine Nitrate Negative (Negative) 09/24/22 15:12 Urine Bilirubin Neg (Negative) 09/24/22 15:12 Urine Urobilinogen Norm mg/dL (Negative) 09/24/22 15:12 Ur Leukocyte Esterase Negative (Negative) 09/24/22 15:12 Discharge Plan Discharge Patient Disposition: Home Clinical Impression: Hypertension, Headache, Malaise, Blurred vision Condition: Stable Prescriptions: New hydralazine 10 mg tablet 10 mg PO QID PRN (Reason: hypertension) Qty: 30 0RF Rx Instructions: systolic >180 or diastolic >110 No Action Contrave 8-90 mg tablet extended release 2 tab PO BID Qty: 120 3RF amlodipine 10 mg tablet See Rx Instructions .ROUTE .COMPLEX Qty: 30 5RF Dose Instruction: Take 1 tablet by mouth once daily Rx Instructions: Take 1 tablet by mouth once daily celecoxib [Celebrex] 200 mg capsule 200 mg PO BID Qty: 60 1RF gabapentin 600 mg tablet See Rx Instructions .ROUTE .COMPLEX Qty: 90 0RF Dose Instruction: TAKE 1 TABLET BY MOUTH THREE TIMES DAILY Rx Instructions: TAKE 1 TABLET BY MOUTH THREE TIMES DAILY rosuvastatin 5 mg tablet 5 mg PO DAILY Discharge Orders: Discharge ED (Routine); Ordered 09/24/22 Ordered By: Jose Blankenship Referrals: Akilah Sims MD [Primary Care Provider] - Discharge Diet: Usual diet Discharge Activity: Resume usual activity Patient Instructions: Acute Headache (ED), Hypertension (ED), Blurred Vision (ED) Activity Restrictions/Additional Instructions: Thank you for visiting the emergency department. You were seen and evaluated for headache with visual disturbance and high blood pressure as well as other symptoms. The exact cause your symptoms is unclear though we are pleased that you had improvement in the emergency department. I do not see evidence of endorgan dysfunction related to your high blood pressure. I will prescribe an as needed medication as discussed for blood pressure. Please also follow-up with your primary care provider. Return to the emergency department for any new neurologic symptoms, recurrence of symptoms, chest pain, shortness of breath, or anything else that you are concerned about and feel needs emergency department evaluation. Coding Level of Care Code ED Associate School Psychologist for Scott Gonzalez
--- NOTE | 2022-09-24 15:33 | CTR_ITS ---
PROCEDURE INFORMATION: Exam: CT Head Without Contrast Exam date and time: 09/24/2022 3:46 PM Age: 56 years old Clinical indication: Pain; Headache not specified; Additional info: HTN, headache, blurry vision TECHNIQUE: Imaging protocol: Computed tomography of the head without contrast. Axial, coronal and sagittal reformatted images were created and reviewed. Radiation optimization: All CT scans at this facility use at least one of these dose optimization techniques: automated exposure control; mA and/or kV adjustment per patient size (includes targeted exams where dose is matched to clinical indication); or iterative reconstruction. REPORTING DATA: Count of CT and Cardiac NM exams in prior 12 months: This patient has received 0 known CTs and 0 known cardiac nuclear medicine studies in the 12 months prior to the current study. COMPARISON: No relevant prior studies available. RADIATION DOSE METRICS: Total DLP (mGy-cm): 1091.08 FINDINGS: Brain: No CT evidence of acute intracranial hemorrhage or acute territorial infarction. No significant mass effect or midline shift. Basal cisterns patent. Cerebral ventricles: Normal in size and configuration. Paranasal sinuses: Unremarkable. No fluid levels. Mastoid air cells: Grossly unremarkable. Bones/joints: No acute osseous abnormality. Soft tissues: Grossly unremarkable. CT/CT head wo con* [id number] IMPRESSION: No CT evidence of acute intracranial pathology.
[2022-09-24 15:43] VITALS: BP 168/90; PULSE 74; RESP 15; O2SAT 97
[2022-09-24 15:47] LABS: Basophils % 0.5 %; Eosinophils # 0.1 10^3/uL (0.0-0.8); Eosinophils % 1.4 %; Hematocrit 42.6 % (37.0-47.0); Lymphocytes # 1.5 10^3/uL (0.8-4.8); Lymphocytes % 25.6 %; Mean Corpuscular HGB Conc 30.5 g/dL (30.0-36.0); Mean Corpuscular Hemoglobin 26.5 pg (28.0-34.0); Mean Corpuscular Volume 86.8 fl (81-99); Mean Platelet Volume 11.5 fL (7.4-10.4); Monocytes # 0.4 10^3/uL (0.2-0.9); Monocytes % 6.9 %; Neutrophils # 3.81 10^3/uL (1.8-7.7); Neutrophils % 65.4 %; Nucleated Red Blood Cells % 0 %; Platelet Count 156 10^3/cmm (130-400); Red Blood Count 4.91 10^6/uL (4.1-5.3); Red Cell Distribution Width 14.7 % (12.1-15.1); White Blood Count 5.8 10^3/uL (4.0-10.0)
[2022-09-24 15:50] LABS: Add Urine Microscopic? NO; Charge for UA Resulting for Rev
[2022-09-24] MEDS: sodium chloride 0.9% 1,000 ML 999 ML IV (15:57)
[2022-09-24] MEDS: metoclopramide 5 mg/mL SDV 2 mL 10 MG IVP (15:59)
[2022-09-24] MEDS: ketorolac 30 mg/mL INJ 15 MG IVP (15:59)
[2022-09-24] MEDS: diphenhydrAMINE 50 mg/mL SDV 1mL 25 MG IVP (15:59)
[2022-09-24 16:15] VITALS: BP 124/75; PULSE 67; RESP 16; O2SAT 95
[2022-09-24 16:16] LABS: Alanine Aminotransferase 11 U/L (0-33); Albumin Level 3.9 g/dL (3.5-5.2); Alkaline Phosphatase 71 U/L (35-105); Aspartate Amino Transferase 15 U/L (0-32); Blood Urea Nitrogen 15 mg/dL (6-20); Calcium 8.6 mg/dL (8.5-10.5); Carbon Dioxide 26 mmol/L (22-29); Chloride 106 mmol/L (98-107); Globulin 2.5 g/dL (1.3-4.6); Glomerular Filtration Rate 126.7 mL/min (90-130); Glucose 92 mg/dL (65-115); NT Pro B Type Natriuretic Pept 123 pg/mL (0-125); Osmolality Calculated 292 mOsm/kg (285-295); Sodium 141 mmol/L (136-145); Thyroid Stimulating Hormone 0.86 uIU/mL (0.27-4.20); Total Bilirubin 0.5 mg/dL (0.15-1.2); Total Protein 6.4 g/dL (6.6-8.7)
[2022-09-24 16:33] LABS: Bilirubin Urine Neg (Negative); Blood Urine Neg (Negative); Glucose Urine UA Norm (Normal); Ketones Urine Negative (Negative); Leukocyte Esterase Urine Negative (Negative); Nitrate Urine Negative (Negative); Protein Urine Neg (Negative); Urine Appearance Clear (CLEAR); Urine Color Straw (Yellow); Urobilinogen Urine Norm (Negative); pH Urine 7 (5-7)
[2022-09-24 17:32] VITALS: BP 142/86; PULSE 68; RESP 16; O2SAT 97
== END 2022-09-24 17:33 | disposition home or self-care (01) ==
PROVIDERS: Emergency Provider Emergency Medicine; PCP Family Medicine
DX: I10 Essential (primary) hypertension (principal); R51.9 Headache, unspecified; R53.81 Other malaise; H53.8 Other visual disturbances; Z87.891 Personal history of nicotine dependence
CPT/HCPCS: 70450; 80053; 81003; 83880; 84443; 85025; 96365; 96375; 99285; J1200; J1885; J2765; J3475; J7030

== ENCOUNTER 2022-10-25 06:00 | Outpatient (RCR) | payer MEDICARE, SELFPAY | END 2022-11-24 23:59 | disposition home or self-care (01) | LOC: TPT 06:00 | PROVIDERS: Visit Provider Specialist | DX: Z47.89 Encounter for other orthopedic aftercare (principal) | CPT/HCPCS: 97110; 97163 ==

== ENCOUNTER 2022-11-25 01:00 | Outpatient (RCR) | payer MEDICARE, SELFPAY | END 2022-12-24 23:59 | disposition home or self-care (01) | LOC: TPT 01:00 | PROVIDERS: Visit Provider Specialist | DX: Z96.641 Presence of right artificial hip joint (principal) | CPT/HCPCS: 97110; 97140 ==

== ENCOUNTER 2022-12-25 06:00 | Outpatient (RCR) | payer MEDICARE, SELFPAY | END 2023-01-24 23:59 | disposition home or self-care (01) | LOC: TPT 06:00 | PROVIDERS: Visit Provider Specialist | DX: Z47.1 Aftercare following joint replacement surgery (principal); Z96.641 Presence of right artificial hip joint | CPT/HCPCS: 97110 ==

== ENCOUNTER 2023-01-25 06:00 | Outpatient (RCR) | payer MEDICARE, SELFPAY | END 2023-02-24 23:59 | disposition home or self-care (01) | LOC: TPT 06:00 | PROVIDERS: Visit Provider Specialist | DX: Z47.1 Aftercare following joint replacement surgery (principal); Z96.641 Presence of right artificial hip joint | CPT/HCPCS: 97110 ==

== ENCOUNTER 2023-02-25 06:00 | Outpatient (RCR) | payer MEDICARE, SELFPAY | END 2023-03-26 23:59 | disposition home or self-care (01) | LOC: TPT 06:00 | PROVIDERS: Visit Provider Specialist | DX: Z96.641 Presence of right artificial hip joint (principal) | CPT/HCPCS: 97110 ==

== ENCOUNTER 2023-03-27 06:00 | Outpatient (RCR) | payer MEDICARE, SELFPAY | END 2023-04-26 23:59 | disposition home or self-care (01) | LOC: TPT 06:00 | PROVIDERS: Visit Provider Specialist | DX: Z47.1 Aftercare following joint replacement surgery (principal); Z96.641 Presence of right artificial hip joint | CPT/HCPCS: 97110 ==

== ENCOUNTER 2023-08-23 18:23 | Emergency (ER) | payer MEDICARE, SELFPAY ==
[2023-08-23 18:26] VITALS: BP 192/97; PULSE 92; RESP 17; TEMP 36.9; O2SAT 95; BMI 38.2
[2023-08-23 18:53] VITALS: BP 158/94; PULSE 80; RESP 13; O2SAT 94
[2023-08-23 18:57] LABS: Add Urine Microscopic? NO; Charge for UA Resulting for Rev
--- NOTE | 2023-08-23 18:59 | W.ED.DIZZY ---
HPI - Dizziness General: Chief Complaint: Dizziness Stated Complaint: dizzieness Time Seen by Provider: 08/23/23 18:38 History of Present Illness: HPI Narrative: Patient presents to the ER with complaints of running out of her blood pressure medicine 3 days ago and her blood pressure been significant elevated. Patient states it has been all the way up to about 250/125. Patient also complains of a headache and problems holding her urine. Patient states she has refills at the pharmacy however she does not have any way to get there until . Review of Systems General: Reports: 10 or more systems reviewed and unremarkable except in HPI and below PFSH ED PFSH: Surgical History H/O discectomy History of oophorectomy History of appendectomy H/O spinal fusion Social History Smoking and tobacco/nicotine status: former use of tobacco/nicotine Quit status (tobacco/nicotine): has quit using Year quit tobacco: 2006 Former quit date comment: smoked 2-3 PPD x 30 yrs Second hand smoke exposure: Yes Alcohol intake: current Alcohol intake frequency: few times a week Alcohol type: hard liquor Substance/Drug Use: never Lives independently: Yes Household members: significant other Marital status: Life Partner Current occupational status: disabled Current gender identity: Female Special wilfredo needs: No Agree to transfusion: Yes Physical Exam Const: COMMON NORMALS: no acute distress, average body habitus, patient oriented x3, no limitations, healthy appearing, alert and well nourished HENMT: COMMON NORMALS: normocephalic, atraumatic, hearing grossly normal bilaterally, external ears normal, EAC's normal, Normal external nose present, moist oral mucous membranes and oropharynx normal HEAD & SCALP: normocephalic and atraumatic NOSE: Normal external nose present EXTERNAL EAR: Yes external ears normal EXTERNAL AUDITORY CANAL: EAC's normal Eye: COMMON NORMALS: Equal, round and reactive pupils present, EOMs intact bilaterally, conjunctivae normal and no scleral icterus CONJUNCTIVA: Yes conjunctivae normal PUPIL: Yes Equal, round and reactive pupils present Neck/C-Spine: COMMON NORMALS: full ROM, no lymphadenopathy, supple, no meningeal signs, no JVD and Thyroid normal THYROID: Thyroid normal Chest: COMMONS NORMALS: normal inspection of the chest and normal palpation of entire chest wall Resp: COMMON NORMALS: normal respiratory effort, No retractions, No use of accessory muscles and clear to auscultation bilaterally AUSCULTATION: clear to auscultation bilaterally Cardio: COMMON NORMALS: no JVD, regular rate, regular rhythm, S1 normal heart sound present, S2 normal heart sound present, No gallops present (Cardio), No clicks present (Cardio), No murmurs present (Cardio) and No rub (Cardio) RATE: regular rate RHYTHM: regular rhythm HEART SOUNDS: S1 normal heart sound present and S2 normal heart sound present Neuro: COMMON NORMALS: patient oriented x3 SENSORIUM/ORIENTATION: Yes alert MENINGEAL SIGNS: Yes no meningeal signs Course Vital Signs: Vital signs: Vital Signs Temperature 98.4 F 08/23/23 18:26 Pulse Rate 89 08/23/23 20:00 Respiratory Rate 16 08/23/23 20:00 Blood Pressure 169/84 08/23/23 20:00 Pulse Oximetry 99 08/23/23 20:00 Oxygen Delivery Me thod Room Air 08/23/23 20:00 MDM - Dizziness Medical Decision Making Physical exam was performed lab work was obtained all which was essentially benign. Patient was given 20 mg of hydralazine and her IV and 30 mg Toradol this helped the patient's headache and improved the patient's blood pressure. Patient will be discharged home to get her medicine filled on and follow-up with her PCP. We will look and see if we have the patient's blood pressure medicine here in stock and we will try to provide her with 2 pills to go home with for continuation until she gets her scale. Differential Diagnosis Unlikely adverse reaction to drug, benign paroxysmal positional vertigo, orthostatic hypotension, vertebral basilar insufficiency, cerebrovascular accident, acute vestibular neuronitis or transient cerebral ischemia Medical Records I reviewed the patient's medical records. Lab Data I reviewed the patient's lab results. 08/23/23 20:32 08/23/23 20:32 Laboratory Results WBC 6.68 10^3/uL (3.29-11.43) 08/23/23 20: RBC 5.07 10^6/uL (3.85-5.65) 08/23/23 20:32 Hgb 15.20 g/dL (11.27-16.99) 08/23/23 20:32 Hct 45.9 % (36-47) 08/23/23 20: MCV 90.5 fl (85-98) 08/23/23 20: MCH 30.0 pg (27-33) 08/23/23 20: MCHC 33.1 g/dL (30-55) 08/23/23 20: RDW 13.2 % (12.1-15.1) 08/23/23 20: Plt Count 185 10^3/cmm (157-399) 08/23/23 20: MPV 10.8 fL (7.4-10.4) H 08/23/23 20: Neut % (Auto) 66.9 % 08/23/23 20: Lymph % (Auto) 23.2 % 08/23/23 20: [place] % (Auto) 8.2 % 08/23/23: Eos % (Auto) 1.2 % 08/23/23: Baso % (Auto) 0.4 % 08/23/23: Neut # (Auto) 4.46 10^3/uL (1.8-7.7) 08/23/23 20: Lymph # (Auto) 1.6 10^3/uL (0.8-4.8) 08/23/23 20: [place] # (Auto) 0.6 10^3/uL (0.2-0.9) 08/23/23 20: Eos # (Auto) 0.1 10^3/uL (0.0-0.8) 08/23/23: Baso # (Auto) 0.0 10^3/uL (0.0-0.1) 08/23/23: Nucleated RBC % (auto) 0 % 08/23/23: Nucleated RBCs # 0.0 /100WBC 08/23/23 20:32 Sodium 141 mmol/L (136-145) 08/23/23 20: Potassium 3.6 mmol/L (3.5-5.1) 08/23/23 20: Chloride 103 mmol/L (98-107) 08/23/23 20: Carbon Dioxide 26 mmol/L (22-29) 08/23/23 20:32 Anion Gap 15.6 (5-19) 08/23/23 20:32 BUN 12 mg/dL (6-20) 08/23/23 20:32 Creatinine 0.5 mg/dL (0.5-0.9) 08/23/23 20:32 GFR Calculation 126.3 mL/min (90-130) 08/23/23 20:32 Glucose 106 mg/dL (65-115) 08/23/23 20:32 Calculated Osmolality 292 mOsm/kg (285-295) 08/23/23 20:32 Calcium 9.5 mg/dL (8.5-10.5) 08/23/23 20:32 Magnesium 2.0 mg/dL (1.7-2.3) 08/23/23 20:32 Total Bilirubin 0.5 mg/dL (0.15-1.2) 08/23/23 20:32 AST 16 U/L (0-32) 08/23/23 20:32 ALT 19 U/L (0-33) 08/23/23 20:32 Alkaline Phosphatase 84 U/L (35-105) 08/23/23 20:32 Total Protein 7.4 g/dL (6.6-8.7) 08/23/23 20:32 Albumin 4.2 g/dL (3.5-5.2) 08/23/23 20:32 Globulin 3.2 g/dL (1.3-4.6) 08/23/23 20:32 Urine Color Light yellow (Yellow) 08/23/23 18:50 Urine Appearance Clear (CLEAR) 08/23/23 18:50 Urine pH 7 (5-7) 08/23/23 18:50 Ur Specific [place] 1.010 (1.005-1.030) 08/23/23 18:50 Urine Protein Neg (Negative) 08/23/23 18:50 Urine Glucose (UA) Norm (Normal) 08/23/23 18:50 Urine Ketones Negative (Negative) 08/23/23 18:50 Urine Blood Neg (Negative) 08/23/23 18:50 Urine Nitrate Negative (Negative) 08/23/23 18:50 Urine Bilirubin Neg (Negative) 08/23/23 18:50 Urine Urobilinogen Norm mg/dL (Negative) 08/23/23 18:50 Ur Leukocyte Esterase Negative (Negative) 08/23/23 18:50 No radiology studies performed this visit Discharge Plan Discharge Patient Disposition: Home Clinical Impression: Essential hypertension Headache Qualifiers: Headache type: unspecified Headache chronicity pattern: acute headache Intractability: not intractable Qualified Code(s): R51.9 - Headache, unspecified Condition: Stable Prescriptions: No Action celecoxib [Celebrex] 200 mg capsule 200 mg PO BID Qty: 60 1RF rosuvastatin 5 mg tablet See Rx Instructions .ROUTE .COMPLEX Qty: 30 0RF Dose Instruction: Take 1 tablet by mouth once daily Rx Instructions: Take 1 tablet by mouth once daily Contrave 8-90 mg tablet extended release See Rx Instructions .ROUTE .COMPLEX Qty: 120 0RF Dose Instruction: TAKE TWO TABLETS BY MOUTH TWICE DAILY Rx Instructions: TAKE TWO TABLETS BY MOUTH TWICE DAILY gabapentin 600 mg tablet See Rx Instructions .ROUTE .COMPLEX Qty: 90 2RF Dose Instruction: TAKE 1 TABLET BY MOUTH THREE TIMES DAILY Rx Instructions: TAKE 1 TABLET BY MOUTH THREE TIMES DAILY valsartan-hydrochlorothiazide 160-25 mg tablet See Rx Instructions .ROUTE .COMPLEX Qty: 30 3RF Dose Instruction: TAKE ONE TABLET BY MOUTH DAILY Rx Instructions: TAKE ONE TABLET BY MOUTH DAILY hydralazine 10 mg tablet 10 mg PO QID PRN (Reason: hypertension) Qty: 30 0RF Rx Instructions: systolic >180 or diastolic >110 Discharge Orders: Discharge ED (Routine); Ordered 08/23/23 Ordered By: Ho Henriquez Patient Instructions: Headache, Hypertension (ED) Activity Restrictions/Additional Instructions: Your workup in the ER was essentially negative. He will be provided with 2 pills each of losartan 100 mg and hydrochlorothiazide 25 mg to take 1 pill of each daily until you get your valsartan/hydrochlorothiazide refill from the pharmacy. Please follow-up with your family practice physician within the next 7 days for further evaluation and treatment. If your symptoms are not controlled or worsen please feel free to return to the ER. Coding Level of Care Code ED Incident Response Engineer for Scott Gonzalez
[2023-08-23 19:03] LABS: Bilirubin Urine Neg (Negative); Blood Urine Neg (Negative); Glucose Urine UA Norm (Normal); Ketones Urine Negative (Negative); Leukocyte Esterase Urine Negative (Negative); Nitrate Urine Negative (Negative); Protein Urine Neg (Negative); Urine Appearance Clear (CLEAR); Urine Color Light yellow (Yellow); Urobilinogen Urine Norm (Negative); pH Urine 7 (5-7)
[2023-08-23] MEDS: hyDRALAzine 20 mg/mL INJ 1 mL IVP (19:06)
[2023-08-23 19:32] VITALS: BP 150/72; PULSE 84; RESP 18; O2SAT 97
[2023-08-23] MEDS: ketorolac 30 mg/mL INJ IVP (19:46)
[2023-08-23 20:00] VITALS: BP 169/84; PULSE 89; RESP 16; O2SAT 99
[2023-08-23 20:38] LABS: Basophils % 0.4 %; Eosinophils # 0.1 10^3/uL (0.0-0.8); Eosinophils % 1.2 %; Hematocrit 45.9 % (36-47); Lymphocytes # 1.6 10^3/uL (0.8-4.8); Lymphocytes % 23.2 %; Mean Corpuscular HGB Conc 33.1 g/dL (30-55); Mean Corpuscular Volume 90.5 fl (85-98); Mean Platelet Volume 10.8 fL (7.4-10.4); Monocytes # 0.6 10^3/uL (0.2-0.9); Monocytes % 8.2 %; Neutrophils # 4.46 10^3/uL (1.8-7.7); Neutrophils % 66.9 %; Nucleated Red Blood Cells % 0 %; Platelet Count 185 10^3/cmm (157-399); Red Blood Count 5.07 10^6/uL (3.85-5.65); Red Cell Distribution Width 13.2 % (12.1-15.1); White Blood Count 6.68 10^3/uL (3.29-11.43)
[2023-08-23 20:59] LABS: Alanine Aminotransferase 19 U/L (0-33); Albumin Level 4.2 g/dL (3.5-5.2); Alkaline Phosphatase 84 U/L (35-105); Anion Gap 15.6 (5-19); Aspartate Amino Transferase 16 U/L (0-32); Blood Urea Nitrogen 12 mg/dL (6-20); Calcium 9.5 mg/dL (8.5-10.5); Carbon Dioxide 26 mmol/L (22-29); Chloride 103 mmol/L (98-107); Creatinine Clr Calc Pharmacy 160.7686; Globulin 3.2 g/dL (1.3-4.6); Glomerular Filtration Rate 126.3 mL/min (90-130); Glucose 106 mg/dL (65-115); Osmolality Calculated 292 mOsm/kg (285-295); Potassium 3.6 mmol/L (3.5-5.1); Sodium 141 mmol/L (136-145); Total Bilirubin 0.5 mg/dL (0.15-1.2); Total Protein 7.4 g/dL (6.6-8.7)
[2023-08-23] MEDS: hydroCHLOROthiazide 25 mg Tablet PO (21:36)
[2023-08-23] MEDS: losartan 50 mg Tablet 100 MG PO (22:14)
== END 2023-08-23 22:15 | disposition home or self-care (01) ==
PROVIDERS: Emergency Provider Emergency Medicine
DX: R51.9 Headache, unspecified (principal); I10 Essential (primary) hypertension; Z87.891 Personal history of nicotine dependence
CPT/HCPCS: 36415; 80053; 81003; 83735; 85025; 96374; 96375; 99284; J0360; J1885

== ENCOUNTER → 2023-11-16 10:47 | Outpatient (BNVA) | payer MEDICARE, SELFPAY | PROVIDERS: PCP Family Medicine; Visit Provider Family Medicine | DX: R30.0 Dysuria (principal) | CPT/HCPCS: 81003 ==

== ENCOUNTER → 2024-02-09 11:07 | Outpatient (BNVA) | payer MEDICARE, SELFPAY | PROVIDERS: PCP Family Medicine; Visit Provider Family Medicine | DX: N39.0 Urinary tract infection, site not specified (principal); R30.0 Dysuria | CPT/HCPCS: 81000 ==

== ENCOUNTER → 2024-03-15 11:12 | Outpatient (BNVA) | payer MEDICARE, SELFPAY | PROVIDERS: PCP Family Medicine; Visit Provider Family Medicine | DX: R30.0 Dysuria (principal) | CPT/HCPCS: 81000 ==

== ENCOUNTER → 2024-05-10 12:05 | Outpatient (BNVA) | payer MEDICARE, SELFPAY | PROVIDERS: PCP Nurse Practitioner Family; Visit Provider Nurse Practitioner Family | DX: I10 Essential (primary) hypertension (principal) | CPT/HCPCS: 80053; 80061; 84443; 85007; 85027 ==

== ENCOUNTER 2024-05-22 06:00 | Outpatient (RCR) | payer MEDICARE, SELFPAY | END 2024-05-26 23:59 | disposition home or self-care (01) | LOC: SPT 06:00 | PROVIDERS: Visit Provider Nurse Practitioner Family | DX: M25.552 Pain in left hip (principal); M25.551 Pain in right hip; M25.562 Pain in left knee; M16.0 Bilateral primary osteoarthritis of hip; M17.12 Unilateral primary osteoarthritis, left knee | CPT/HCPCS: 97110; 97163 ==

== ENCOUNTER 2024-05-27 06:00 | Outpatient (RCR) | payer MEDICARE, SELFPAY | END 2024-06-26 23:59 | disposition home or self-care (01) | LOC: SPT 06:00 | PROVIDERS: Visit Provider Nurse Practitioner Family | DX: M25.562 Pain in left knee (principal); M25.551 Pain in right hip; M25.552 Pain in left hip | CPT/HCPCS: 97110; 97116 ==

== ENCOUNTER → 2024-10-11 11:45 | Outpatient (BNVA) | payer MEDICARE, SELFPAY | PROVIDERS: PCP Nurse Practitioner Family; Visit Provider Nurse Practitioner Family | DX: I10 Essential (primary) hypertension (principal); E66.9 Obesity, unspecified | CPT/HCPCS: 80053; 80061; 84443; 85025 ==

== ENCOUNTER 2024-10-29 10:58 | Outpatient (CLI) | payer MEDICARE, SELFPAY ==
--- NOTE | 2024-10-29 11:45 | MR_ITS ---
WS: [id number] MRI BRAIN WITHOUT CONTRAST HISTORY: H53.9 - Unspecified visual disturbance COMPARISON: CT head 09/24/2022 TECHNIQUE: Diffusion imaging, multiplanar T1, T2 and FLAIR imaging obtained. No evidence for acute infarct or hemorrhage. Salcedo-white matter differentiation is normal. No prior infarcts. No hemorrhage. Mild atrophy and mild small vessel ischemic changes are symmetric. Mild cerebellar atrophy. No significant hippocampal atrophy. Ventricles and extra-axial spaces are normal. No inferior displacement of cerebellar tonsils. The sella turcica and pituitary gland are unremarkable. Dural venous sinuses and [place] demonstrate no abnormality on this unenhanced studies. Paranasal sinuses: Small cyst or polyp in the floor the LEFT maxillary sinus. No air-fluid levels. Mastoid air cells: Normal. Calvarium and scalp: Intact. MR/MR head wo con* [id number] IMPRESSION: 1. No acute infarct or hemorrhage. 2. Mild cerebral and cerebellar atrophy and small vessel disease. 3. Normal hippocampal formations. 4. No prior infarct.
== END 2024-10-29 10:59 | disposition home or self-care (01) ==
PROVIDERS: PCP Nurse Practitioner Family; Visit Provider Nurse Practitioner Family
DX: H53.9 Unspecified visual disturbance (principal); R20.0 Anesthesia of skin; R20.2 Paresthesia of skin; R51.9 Headache, unspecified; G31.89 Other specified degenerative diseases of nervous system; R93.0 Abnormal findings on diagnostic imaging of skull and head, not elsewhere classified; J34.89 Other specified disorders of nose and nasal sinuses
CPT/HCPCS: 70551

== ENCOUNTER 2025-01-28 10:04 | Emergency (ER) | payer MEDICARE, SELFPAY ==
[2025-01-28 10:19] VITALS: BP 175/96; PULSE 78; RESP 16; TEMP 36.7; O2SAT 91; BMI 39.2
--- NOTE | 2025-01-28 10:43 | ED_ITS ---
HPI - General Adult 2 General: Chief complaint: Back Pain/Injury Stated complaint: back pain, facial swelling, itching all over Time Seen by Provider: 01/28/25 10:07 Source: patient Mode of arrival: ambulatory Limitations: no limitations History of Present Illness: 59-year-old female here in ED with two s eparate complaints. #1: Right middle back pain radiating to her right abdomen with associated nausea without vomiting over the past 2-3 weeks. Patient states that the pain occurs randomly whether it is with movement or at rest. She has tried ice, heat, and Tylenol which has not improve her pain. Denies any pain radiating down her legs, weakness or numbness in her legs, dysuria, urinary incontinence, fevers, or true abdominal pain. Denies any trauma or injury prior to the onset of her pain. Pain was at its worst last night thus prompting evaluation today. No rash #2: Facial swelling and itchiness over the past 4 days. She states that she was outside with her son who was cutting down ramos from a tree with a chainsaw and believes she had an allergic reaction to that. She also reports of itchy rash to her chest and upper arms that occurred at the same time. She has tried taking Benadryl twice a day for the past 3 days, which has helped decrease some of the swelling and itching. Denies any difficulty swallowing or breathing. No other complaints at this time. Onset (ago): week(s) (2) Location: back Radiation: abdomen (Right) Quality: stabbing Pain Consistency: intermittent Relieving factors: none Exacerbating factors: movement and rest Associated symptoms: Reports nausea; Deny chest pain, dyspnea, fevers/chills, headache(s), malaise, rash, palpitations, syncope or vomiting Treatments prior to arrival: cold therapy, heat therapy and other (Tylenol) Related Data Previous Rx's ?Medication ?Instructions ?Recorded calcium 500 mg (as 1 tab PO DAILY #30 tabs 10/18 carbonate)-vitamin D3 15 mcg (600 unit) tablet (Os-Moi 500 + D3) citalopram 20 mg tablet (Celexa) 20 mg PO DAILY #30 ta bs 10/11/24 semaglutide 0.25 mg or 0.5 mg (2 0.25 mg (0.187 mL) SANCHEZ BCUT .once 10/11/24 mg/1.5 mL) subcutaneous pen weekly #1.5 mL injector telmisartan 80 1 tab PO DAILY #30 tabs 09/25 01/18 mg-hydrochlorothiazide 25 mg tablet atorvastatin 20 mg tablet (Lipitor) 20 mg PO DAILY #30 tabs 10/18/24 metoprolol succinate 25 mg 25 mg PO DAILY #30 tabs tablet,extended release 24 hr gabapentin 800 mg tablet See Rx Instructions .Route 0 01/15/25 .COMPLEX #30 tabs cyclobenzaprine 10 mg tablet 10 mg PO TID #14 tabs 10/19 ibuprofen 600 mg tablet 600 mg PO Q8H PRN pain #20 t abs 01/28/25 prednisone 10 mg tablet 10 mg PO DAILY 6 days #20 ta bs 01/28/25 Allergies Allergy/AdvReac Type Severity Reaction Status Date / Time No Known Allergies Allergy Verified 10/18/24 10:33 Review of Systems 2 Const: Denies: fever(s), chills, body aches, fatigue or malaise Eyes: Reports: other (swelling around the eyes) ENMT: Denies: throat pain, odynophagia, nasal congestion or sinus pain Card: Denies: chest pain, palpitations, edema, lightheadedness, syncope, pre- syncope, dyspnea on exertion or orthopnea Resp: Denies: dyspnea GI: Reports: abdominal pain (feels like back pain radiates into abdomen) and nausea; Denies: vomiting : Denies: difficulty voiding, dysuria, urinary frequency, urinary urgency or urinary hesitancy Musc: Reports: back pain; Denies: neck pain, extremity pain, extremity swelling, joint pain, joint swelling or joint redness Skin/Breast: Denies: rash Neuro: Denies: headache(s), numbness in extremities, weakness in extremities, sensory changes or dizziness PFSH ED 2 PFSH: Surgical History H/O discectomy History of oophorectomy History of appendectomy H/O spinal fusion Social History Smoking and tobacco/nicotine status: former use of tobacco/nicotine Quit status (tobacco/nicotine): has quit using Year quit tobacco: 2006 Former quit date comment: smoked 2-3 PPD x 30 yrs Second hand smoke exposure: Yes Alcohol intake: current Alcohol intake frequency: few times a week Alcohol type: hard liquor Substance/Drug Use: never Lives independently: Yes Household members: significant other Marital status: Life Partner Current occupational status: disabled Current gender identity: Female Special wilfredo needs: No Agree to transfusion: Yes Physical Exam 2 Const: COMMON NORMALS: patient oriented x3, no limitations, alert and well nourished GENERAL APPEARANCE: cooperative and in distress (appears uncomfortable with movement-pain in back) NUTRITIONAL APPEARANCE: obese O RIENTATION/CONSCIOUSNESS: Yes awake, Yes oriented to person, Yes oriented to place and Yes oriented to time HENMT: COMMON NORMALS: normocephalic and atraumatic HEAD & SCALP: normal to inspection, normocephalic and atraumatic FACE & SINUS: normal facial exam Eye: OTHER: mild inferior periorbital swelling Neck/C-Spine: COMMON NORMALS: full ROM GENERAL: Yes normal visual inspection CERVICAL SPINE: No Cervical spine tenderness Chest: COMMONS NORMALS: normal inspection of the chest and normal palpation of entire chest wall Resp: COMMON NORMALS: normal respiratory effort and clear to auscultation bilaterally AUSCULTATION: clear to auscultation bilaterally Cardio: COMMON NORMALS: regular rate and regular rhythm RATE: regular rate RHYTHM: regular rhythm GI: COMMON NORMALS: Normal to inspection, nondistended, normoactive bowel sounds present, Soft to palpation, non-tender, No hepatosplenomegaly present and no masses PALPATION: Yes Soft to palpation and Yes No hepatosplenomegaly present : BLADDER/KIDNEY EXAM: Yes CVA tenderness on the right Back/Pelvis: COMMON NORMALS: thoracic and lumbar spine normal to inspection, no thoracic nor lumbar tenderness and straight leg raise negative bilaterally GENERAL BACK: Yes CVA tenderness THORACIC SPINE/UPPER BACK: Yes pain with ROM and Yes paraspinal muscle tenderness Thoracic paraspinal muscle tenderness: right PELVIS: Yes buttocks normal and No sciatic notch tenderness SACRUM: no tenderness COCCYX: no tenderness Extremity: COMMON NORMALS: capillary refill normal, no clubbing, cyanosis or edema, no calf tenderness and no pedal edema GENERAL: Yes normal exam except as noted Neuro: COMMON NORMALS: patient oriented x3, moves all extremities, no focal motor deficits and no sensory deficits noted SENSORIUM/ORIENTATION: Yes alert, Yes oriented to person, Yes oriented to place and Yes oriented to time Skin: NARRATIVE SKIN EXAM: scattered mild rash to face/arms Course 2 Vital Signs: Vital signs: Vital Signs Temperature 98.0 F 01/28/25 10:19 Pulse Rate 59 L 01/28/25 11:05 Respiratory Rate 16 01/28/25 11:05 Blood Pressure 175/96 01/28/25 11:05 Pulse Oximetry 99 01/28/25 11:05 Oxygen Delivery Me thod Room Air 01/28/25 11:05 MDM - General Adult Medical Decision Making Patient feeling somewhat better after medications. Blood work overall is unremarkable. Her UA is contaminated but no obvious evidence for infection. She is not having any urinary symptoms. CT scan showing some incidental findings of a probable parapelvic renal cyst as well as a right breast mass. These will be further evaluated as an outpatient. She will be treated for musculoskeletal back pain and plant dermatitis. Recommend follow-up with primary care later this week. Return to ED precautions discussed. Medical Records I reviewed the patient's medical records. Lab Data I reviewed the patient's lab results. 01/28/25 10:42 01/28/25 10:42 Radiology Impressions Abdomen/Pelvis CT 01/28/25 10:56 IMPRESSION: 1. No acute abdominal or pelvic abnormalities are identified. 2. No renal obstruction. 3. Probable parapelvic cyst mid RIGHT kidney and nonobstructing calcifications. Recommend additional imaging of the RIGHT kidney to ensure this is a simple cyst and to evaluate the slightly lobulated renal cortex. Renal ultrasound may be of benefit. Due to patient's body habitus a renal mass CT protocol may be necessary. 4. Prior appendectomy. 5. Mild distal colonic diverticulosis without acute diverticulitis. 6. Bilateral fat-containing inguinal canals. 7. RIGHT breast mass was not identified on the most recent mammogram of 01/28/2022. Recommend diagnostic mammogram and RIGHT breast ultrasound evaluation on a nonurgent basis. Laboratory Results WBC 8.42 10^3/uL (3.29-11.43) 01/28/25 10:42 RBC 5.00 10^6/uL (3.85-5.65) 01/28/25 10:42 Hgb 14.10 g/dL (11.27-16.99) 01/28/25 10:42 Hct 43.3 % (36-47) 01/28/25 10:42 MCV 86.6 fl (85-98) 01/28/25 10:42 MCH 28.2 pg (27-33) 01/28/25 10:42 MCHC 32.6 g/dL (30-55) 01/28/25 10:42 RDW 15.7 % (12.1-15.1) H 01/28/25 10:42 Plt Count 237 10^3/cmm (157-399) 01/28/25 10:42 MPV 12.0 fL (7.4-10.4) H 01/28/25 10:42 Neut % (Auto) 53.8 % 01/28/25 10:42 Lymph % (Auto) 32.3 % 01/28/25 10:42 [place] % (Auto) 6.5 % 01/28/25 10:42 Eos % (Auto) 7.0 % 01/28/25 10:42 Baso % (Auto) 0.2 % 01/28/25 10:42 Neut # (Auto) 4.52 10^3/uL (1.8-7.7) 01/28/25 10:42 Lymph # (Auto) 2.7 10^3/uL (0.8-4.8) 01/28/25 10:42 [place] # (Auto) 0.6 10^3/uL (0.2-0.9) 01/28/25 10:42 Eos # (Auto) 0.6 10^3/uL (0.0-0.8) 01/28/25 10:42 Baso # (Auto) 0.0 10^3/uL (0.0-0.1) 01/28/25 10:42 Nucleated RBC % (auto) 0 % 01/28/25 10:42 Nucleated RBCs # 0.0 /100WBC 01/28/25 10:42 Sodium 142 mmol/L (136-145) 01/28/25 10:42 Potassium 3.5 mmol/L (3.5-5.1) 01/28/25 10:42 Chloride 102 mmol/L (98-107) 01/28/25 10:42 Carbon Dioxide 28 mmol/L (22-29) 01/28/25 10:42 Anion Gap 15.5 (5-19) 01/28/25 10:42 BUN 16 mg/dL (8-23) 01/28/25 10:42 Creatinine 0.8 mg/dL (0.5-0.9) 01/28/25 10:42 GFR Calculation 72.9 mL/min (90-130) L 01/28/25 10:42 Glucose 124 mg/dL (65-115) H 01/28/25 10:42 Calculated Osmolality 297 mOsm/kg (285-295) H 01/28/25 10:42 Calcium 9.4 mg/dL (8.5-10.5) 01/28/25 10:42 Total Bilirubin 0.8 mg/dL (0.15-1.2) 01/28/25 10:42 AST 14 U/L (0-32) 01/28/25 10:42 ALT 8 U/L (0-33) 01/28/25 10:42 Alkaline Phosphatase 92 U/L (35-105) 01/28/25 10:42 Total Protein 7.0 g/dL (6.6-8.7) 01/28/25 10:42 Albumin 4.2 g/dL (3.5-5.2) 01/28/25 10:42 Globulin 2.8 g/dL (1.3-4.6) 01/28/25 10:42 Urine Color Yellow (Yellow) 01/28/25 10:56 Urine Appearance Cloudy (CLEAR) A 01/28/25 10:56 Urine pH 5.0 (5-7) 01/28/25 10:56 Ur Specific [place] 1.024 (1.005-1.030) 01/28/25 10:56 Urine Protein Negative (Negative) 01/28/25 10:56 Urine Glucose (UA) Negative (Normal) 01/28/25 10:56 Urine Ketones Trace (Negative) 01/28/25 10:56 Urine Blood Negative (Negative) 01/28/25 10:56 Urine Nitrate Negative (Negative) 01/28/25 10:56 Urine Bilirubin Negative (Negative) 01/28/25 10:56 Urine Urobilinogen 1.0 mg/dL (Negative) 01/28/25 10:56 Ur Leukocyte Esterase Trace (Negative) A 01/28/25 10:56 Urine RBC 0-2 /hpf (0-2) 01/28/25 10:56 Urine WBC 0-5 /hpf (0-5) 01/28/25 10:56 Ur Squamous Epith Cells 11-20 /hpf (0-5) H 01/28/25 10:56 Amorphous Sediment Not Reportable 01/28/25 10:56 Urine Bacteria 1+ /hpf (NONE) H 01/28/25 10:56 Hyaline Casts 1.21 /lpf 01/28/25 10:56 All radiology interpretation(s) finalized by discharge Discharge Plan Discharge Patient Disposition: Home Clinical Impression: Dermatitis due to plant Acute right-sided back pain Qualifiers: Back pain location: thoracic back pain Qualified Code(s): M54.6 - Pain in thoracic spine Condition: Stable Prescriptions: New ibuprofen 600 mg tablet 600 mg PO Q8H PRN (Reason: pain) Qty: 20 0RF cyclobenzaprine 10 mg tablet 10 mg PO TID Qty: 14 0RF prednisone 10 mg tablet 10 mg PO DAILY 6 Days Qty: 20 0RF Rx Instructions: Take 5 tabs on day 1-2, 4 tabs on day 3, 3 tabs on day 4, 2 tabs on day 5, and 1 tab on day 6 No Action calcium carbonate-vitamin D3 [Os-Moi 500 + D3] 500 mg-15 mcg (600 unit) tablet 1 tab PO DAILY Qty: 30 0RF telmisartan-hydrochlorothiazid 80-25 mg tablet 1 tab PO DAILY Qty: 30 5RF semaglutide 0.25 mg or 0.5 mg(2 mg/1.5 mL) pen injector 0.25 mg SUBCUT .once weekly Qty: 1.5 5RF citalopram [Celexa] 20 mg tablet 20 mg PO DAILY Qty: 30 5RF metoprolol succinate 25 mg tablet extended release 24 hr 25 mg PO DAILY Qty: 30 2RF atorvastatin [Lipitor] 20 mg tablet 20 mg PO DAILY Qty: 30 2RF gabapentin 800 mg tablet See Rx Instructions .ROUTE .COMPLEX Qty: 30 5RF Dose Instruction: TAKE 1 TABLET BY MOUTH THREE TIMES DAILY Rx Instructions: TAKE 1 TABLET BY MOUTH THREE TIMES DAILY Discharge Orders: Discharge ED (Routine); Ordered 01/28/25 Ordered By: Kendy Rocha Referrals: Shayy Amato FNP-C [Primary Care Provider, Family Practice] Patient Instructions: Patient Portal & Jason Instructions Activity Restrictions/Additional Instructions: As we discussed, we will treat your back pain with anti-inflammatories, muscle relaxers, steroids. The steroids will also help with the dermatitis/rash and swelling around her eyes. I would like you to follow-up with primary care for further evaluation-later this week if possible. We did discuss incidental findings on your CT scan today involving a mass to your right kidney. This could be a simple cyst but radiologist is recommending possibly a renal ultrasound or a CT renal mass protocol. They also saw a right breast mass that was not present on the most recent mammogram in 2021. This needs to be evaluated by diagnostic mammogram and breast ultrasound. Please follow-up with primary care regarding these findings. Print Language: Hebrew Coding Level of Care Code ED [place] Worker for Scott Gonzalez
--- NOTE | 2025-01-28 10:56 | CT_ITS ---
WS: [id number] CT ABDOMEN AND PELVIS NONCONTRAST HISTORY: R flank/back/abdominal pain TECHNIQUE: Imaging performed through the abdomen and pelvis. Coronal and sagittal reformats are submitted. All CT scans at [facility] use at least one of these dose optimization techniques: automated exposure control; mA and/or kV adjustment per patient size (includes targeted exams where dose is matched to clinical indication); or iterative reconstruction. DLP: 1451.56 mGy.cm COMPARISON: None available. Lower thorax: Lung bases are clear. Visualized heart is normal. No hiatal hernia. Well-circumscribed low-attenuation mass in the RIGHT breast near the nipple measures 1.9 x 1.6 cm. This mass is just lateral to the nipple. Prior mammogram from 01/28/2022 did not demonstrate any mass. This will need to be further evaluated on a nonurgent basis. Liver: Normal size liver. No mass or bile duct dilatation. Gallbladder: Normal gallbladder. No pericholecystic fluid or cholelithiasis. No gallbladder wall thickening. Pancreas: Normal size and attenuation. Normal pancreatic duct. No pancreatitis or mass. Spleen: Normal. Adrenal glands: Normal. No mass. Right kidney: Normal size kidney. No obstruction. Nonobstructing calcification in the mid kidney. There is a low-attenuation mass in the renal pelvis consistent with a parapelvic cyst. No ureteral obstruction. Left kidney: Normal size kidney with no mass or hydronephrosis. Aorta: Mild atherosclerosis abdominal aorta with no aneurysm. No free fluid, intraperitoneal air or significant lymphadenopathy. GI tract: No small bowel obstruction. Prior appendectomy. Mild distal colonic diverticular disease. No colitis. Abdominal wall: Negative. No hernia. Pelvis: Bilateral fat-containing inguinal canal hernias. Uterus is midline. No free fluid or adenopathy. Osseous structures: Posterior lumbar fusion at L5-S1 with interbody spacer. Prior RIGHT hip arthroplasty. Severe LEFT hip joint arthropathy. CT/CT kidney stone [id number] IMPRESSION: 1. No acute abdominal or pelvic abnormalities are identified. 2. No renal obstruction. 3. Probable parapelvic cyst mid RIGHT kidney and nonobstructing calcifications . Recommend additional imaging of the RIGHT kidney to ensure this is a simple c yst and to evaluate the slightly lobulated renal cortex. Renal ultrasound may b e of benefit. Due to patient's body habitus a renal mass CT protocol may be nec essary. 4. Prior appendectomy. 5. Mild distal colonic diverticulosis without acute diverticulitis. 6. Bilateral fat-containing inguinal canals. 7. RIGHT breast mass was not identified on the most recent mammogram of 01/29/20 22. Recommend diagnostic mammogram and RIGHT breast ultrasound evaluation on a nonurgent basis.
[2025-01-28 10:57] LABS: Hematocrit 43.3 % (36-47); Hemoglobin 14.10 g/dL (11.27-16.99); Mean Corpuscular HGB Conc 32.6 g/dL (30-55); Mean Corpuscular Hemoglobin 28.2 pg (27-33); Mean Corpuscular Volume 86.6 fl (85-98); Nucleated Red Blood Cells % 0 %; Platelet Count 237 10^3/cmm (157-399); Red Blood Count 5.00 10^6/uL (3.85-5.65); White Blood Count 8.42 10^3/uL (3.29-11.43)
[2025-01-28 11:05] VITALS: BP 175/96; PULSE 59; RESP 16; O2SAT 99
[2025-01-28] MEDS: orphenadrine 30 mg/mL Inj 2 mL 60 MG IVP (11:05)
[2025-01-28 11:06] LABS: Alanine Aminotransferase 8 U/L (0-33); Albumin Level 4.2 g/dL (3.5-5.2); Alkaline Phosphatase 92 U/L (35-105); Anion Gap 15.5 (5-19); Aspartate Amino Transferase 14 U/L (0-32); Blood Urea Nitrogen 16 mg/dL (8-23); Calcium 9.4 mg/dL (8.5-10.5); Carbon Dioxide 28 mmol/L (22-29); Chloride 102 mmol/L (98-107); Creatinine Clr Calc Pharmacy 99.2687; Globulin 2.8 g/dL (1.3-4.6); Glucose 124 mg/dL (65-115); Osmolality Calculated 297 mOsm/kg (285-295); Potassium 3.5 mmol/L (3.5-5.1); Sodium 142 mmol/L (136-145); Total Protein 7.0 g/dL (6.6-8.7)
[2025-01-28 11:06] LABS: Glucose Urine UA Negative (Normal); Nitrate Urine Negative (Negative); Specific Gravity, Urine 1.024 (1.005-1.030)
[2025-01-28 11:11] LABS: Add Urine Microscopic? YES
[2025-01-28 12:35] VITALS: BP 169/103; PULSE 62; O2SAT 95
== END 2025-01-28 12:40 | disposition home or self-care (01) ==
PROVIDERS: Emergency Provider Physician Assistant; PCP Nurse Practitioner Family
DX: L25.5 Unspecified contact dermatitis due to plants, except food (principal); M54.6 Pain in thoracic spine; Z87.891 Personal history of nicotine dependence
CPT/HCPCS: 74176; 80053; 81001; 85025; 96374; 96375; 99285; J1100; J1885; J2360

== ENCOUNTER → 2025-02-05 13:07 | Outpatient (BNVA) | payer MEDICARE, SELFPAY | PROVIDERS: PCP Nurse Practitioner Family; Visit Provider Orthopaedic Surgery | DX: M54.9 Dorsalgia, unspecified (principal); M43.26 Fusion of spine, lumbar region; M54.50 Low back pain, unspecified | CPT/HCPCS: 72110; 99203 ==

== ENCOUNTER 2025-02-25 06:30 | Outpatient (RCR) | payer MEDICARE, SELFPAY | END 2025-03-26 23:59 | disposition home or self-care (01) | LOC: TPT 06:30 | PROVIDERS: PCP Nurse Practitioner Family; Visit Provider Orthopaedic Surgery | DX: M54.9 Dorsalgia, unspecified (principal); G89.29 Other chronic pain | CPT/HCPCS: 97110; 97161 ==

== ENCOUNTER → 2025-02-28 12:48 | Outpatient (BNVA) | payer MEDICARE, SELFPAY | PROVIDERS: PCP Nurse Practitioner Family; Visit Provider Nurse Practitioner Family | DX: N39.0 Urinary tract infection, site not specified (principal); I10 Essential (primary) hypertension; E66.9 Obesity, unspecified; H66.93 Otitis media, unspecified, bilateral; N63.0 Unspecified lump in unspecified breast | CPT/HCPCS: 80053; 80061; 81000; 83036; 84443; 85025 ==

== ENCOUNTER 2025-03-12 09:20 | Outpatient (CLI) | payer MEDICARE, SELFPAY ==
--- NOTE | 2025-03-12 10:31 | XR_ITS ---
WS: [id number] XR tibia fibula LT 2V [id number] REASON FOR EXAM: M79.662 - Pain in left lower leg FINDINGS: No fracture or focal bone lesion. No periosteal reaction. No soft tissue radiopaque foreign body. XR/XR tibia fibula LT 2V [id number] IMPRESSION: No significant abnormality.
--- NOTE | 2025-03-12 10:46 | MM_ITS ---
WS: [id number] DIAGNOSTIC BILATERAL DIGITAL BREAST TOMOSYNTHESIS MAMMOGRAPHY WITH CAD Bilateral breast ultrasound, limited HISTORY: Palpable nodule LEFT breast upper outer quadrant. Patient indicates this mass has been present for 4 to 5 years. COMPARISON: 01/28/2022 TECHNIQUE: Bilateral craniocaudad, mediolateral oblique, and mediolateral views are submitted with tomosynthesis and SM. Spot compression LEFT MLO. Computer aided detection utilized. Breast composition: There are scattered areas of fibroglandular density. There is a well-circumscribed mass in the RIGHT retroareolar region measuring 2.3 x 1.7 x 2.4 cm. Otherwise no suspicious masses or distortion within the RIGHT breast. Marker is placed on the upper outer quadrant of the LEFT breast in the area of the palpable abnormality. No mammographic abnormality is noted in this location. Ultrasound to follow. Benign calcifications in each breast. Bilateral breast ultrasound, limited. RIGHT: Solid hypoechoic oval mass with slightly angular margins in the retroareolar region. This mass measures 2.2 x 1.2 x 2.0 cm. No increased vascularity. LEFT: No abnormality noted in the LEFT breast in the area of the palpable abnormality. MM/MM diag BI tomosynthesis [id number] IMPRESSION: BI-RADS: 4 - Suspicious Finding - Biopsy Should Be Considered. FOLLOW UP: Biopsy Recommended Biopsy recommended retroareolar RIGHT breast mass. Notified CHARMAINE Valles at 03/12/2025 12:23 PM.
--- NOTE | 2025-03-12 10:52 | US_ITS ---
WS: [id number] DIAGNOSTIC BILATERAL DIGITAL BREAST TOMOSYNTHESIS MAMMOGRAPHY WITH CAD Bilateral breast ultrasound, limited HISTORY: Palpable nodule LEFT breast upper outer quadrant. Patient indicates this mass has been present for 4 to 5 years. COMPARISON: 01/28/2022 TECHNIQUE: Bilateral craniocaudad, mediolateral oblique, and mediolateral views are submitted with tomosynthesis and SM. Spot compression LEFT MLO. Computer aided detection utilized. Breast composition: There are scattered areas of fibroglandular density. There is a well-circumscribed mass in the RIGHT retroareolar region measuring 2.3 x 1.7 x 2.4 cm. Otherwise no suspicious masses or distortion within the RIGHT breast. Marker is placed on the upper outer quadrant of the LEFT breast in the area of the palpable abnormality. No mammographic abnormality is noted in this location. Ultrasound to follow. Benign calcifications in each breast. Bilateral breast ultrasound, limited. RIGHT: Solid hypoechoic oval mass with slightly angular margins in the retroareolar region. This mass measures 2.2 x 1.2 x 2.0 cm. No increased vascularity. LEFT: No abnormality noted in the LEFT breast in the area of the palpable abnormality. US/US breast BI limited* [id number] IMPRESSION: BI-RADS: 4 - Suspicious Finding - Biopsy Should Be Considered. FOLLOW UP: Biopsy Recommended Biopsy recommended retroareolar RIGHT breast mass. Notified CHARMAINE Valles at 03/12/2025 12:23 PM.
[2025-03-12] MEDS: iohexol 350 mg/mL 500 mL Btl (per mL) IV ×2 (12:04)
--- NOTE | 2025-03-12 12:15 | CT_ITS ---
WS: [id number] CT ABDOMEN AND PELVIS WITH AND WITHOUT CONTRAST HISTORY: Follow-up possible mass RIGHT kidney. TECHNIQUE: Unenhanced 3 mm axial imaging first performed through the abdomen. Post contrast imaging through the abdomen and pelvis. Oral contrast has not been provided. Sagittal and coronal reformats are submitted. All CT scans at [facility] use at least one of these dose optimization techniques: automated exposure control; mA and/or kV adjustment per patient size (includes targeted exams where dose is matched to clinical indication); or iterative reconstruction. CONTRAST: Omnipaque 350; 95 mL IV. DLP: 5038.83 mGy.cm COMPARISON: Noncontrast CT 01/28/2025 Lung bases are clear. Normal size heart. No hiatal hernia. RIGHT kidney: 9.6 cm in length. Mildly lobular renal cortex. Nonobstructing 3 mm calcification in the renal pelvis. Parapelvic cyst in the mid kidney measures 2.2 x 1.5 cm and does not enhance. Lobulated contour of the kidney noted on the prior study is a normal lobulation with. There is no solid mass. No cyst identified. No hydronephrosis or ureteral obstruction. LEFT kidney: 9.5 cm in length. Normal size kidney with no hydronephrosis. No renal calcifications. No solid mass. No obstruction. Normal liver and spleen. Normal gallbladder and adrenal glands. Normal pancreas. Minimal atherosclerosis aorta. Normal enhancement of the mesenteric arteries. No GI tract obstruction. No colitis. Prior appendectomy. There are few mild diverticula in the sigmoid colon. No ascites or adenopathy. Uterus is present. No free fluid. No mass in the pelvis. Bilateral inguinal hernias contain fat only. Prior RIGHT hip arthroplasty. Severe degenerative joint disease involving the LEFT hip. Bone upon bone with osteophytic ridging and subchondral cysts on both sides of the joint. Prior posterior lumbar fusion at L5-S1. CT/CT abdomen pelvis wo/w [id number] IMPRESSION: 1. No solid renal mass. 2. Lobulated RIGHT renal contour and a benign parapelvic cyst correspond with the previously described findings of 01/28/2025. 3. Prior appendectomy. 4. No adenopathy or ascites. 5. Mild sigmoid diverticulosis without acute diverticulitis. 6. Advanced degenerative joint disease involving the LEFT hip.
--- NOTE | 2025-03-12 12:15 | CT_ITS ---
WS: [id number] CT NECK TECHNIQUE: Contrast-enhanced CT of the neck with coronal and sagittal reformatted images. CLINICAL INFORMATION: M54.2 - Cervicalgia COMPARISON: None. DLP: 269.[address] scans at [facility] use at least one of these dose optimization techniques: automated exposure control; mA and/or kV adjustment per patient size (includes targeted exams where dose is matched to clinical indication); or iterative reconstruction. FINDINGS: A few normal sized lymph nodes deep to the palpable marker LEFT lower neck. No suspicious findings in the area of concern. Paranasal sinuses and mastoid air cells are well aerated. Small retention cyst LEFT inferior maxillary sinus. Parotid glands are normal. Normal submandibular glands. Normal posterior nasopharynx. Normal parapharyngeal fat. No evidence of supraglottic or glottic mass. Normal subglottic airway. Few small RIGHT thyroid nodules. Lung apices are well aerated. No cervical lymphadenopathy. Straightening of the normal cervical lordosis. Moderate spondylitic changes. CT/CT neck w con* [id number] IMPRESSION: 1. A few normal sized lymph nodes deep to the palpable marker LEFT lower neck. No suspicious findings in the area of concern.
== END 2025-03-12 09:21 | disposition home or self-care (01) ==
LOC: RAD 09:22
PROVIDERS: PCP Nurse Practitioner Family; Visit Provider Nurse Practitioner Family
DX: M54.2 Cervicalgia (principal); G89.29 Other chronic pain; R22.0 Localized swelling, mass and lump, head; R22.1 Localized swelling, mass and lump, neck; N28.89 Other specified disorders of kidney and ureter; M79.662 Pain in left lower leg; N63.0 Unspecified lump in unspecified breast
CPT/HCPCS: 70491; 73590; 74178; 76642; 77062; G0279

== ENCOUNTER → 2025-04-01 10:18 | Outpatient (BNVA) | payer MEDICARE, SELFPAY | PROVIDERS: PCP Nurse Practitioner Family; Visit Provider Student in an Organized Health Care Education/Training Program | DX: R92.8 Other abnormal and inconclusive findings on diagnostic imaging of breast (principal) | CPT/HCPCS: 99204 ==

== ENCOUNTER → 2025-04-15 10:34 | Outpatient (BNVA) | payer MEDICARE, SELFPAY | PROVIDERS: PCP Nurse Practitioner Family; Visit Provider Podiatrist Foot & Ankle Surgery | DX: M25.572 Pain in left ankle and joints of left foot (principal); G89.29 Other chronic pain; M79.605 Pain in left leg | CPT/HCPCS: 73590; 73610; 99204 ==

== ENCOUNTER 2025-04-24 11:16 | Outpatient (RCR) | payer MEDICARE, SELFPAY | END 2025-04-26 23:59 | disposition home or self-care (01) | LOC: TPT 11:16 | PROVIDERS: PCP Nurse Practitioner Family; Visit Provider Orthopaedic Surgery | DX: M54.9 Dorsalgia, unspecified (principal); G89.29 Other chronic pain | CPT/HCPCS: 97110 ==

== ENCOUNTER 2025-05-02 14:13 | Outpatient (CLI) | payer MEDICARE, SELFPAY ==
--- NOTE | 2025-05-02 15:15 | MR_ITS ---
WS: [id number] MRI LEFT LOWER EXTREMITY WITHOUT CONTRAST. COMPARISON: Radiographs 04/15/2025 Multiplanar, multisequence imaging is performed without contrast. History: LEFT lower leg pain from knee to ankle for 1 year. No injury. MRI begins at the knee joint and extends through the ankle. There is mild diffuse soft tissue edema which is not focal. No muscle atrophy is identified. Incompletely visualized LEFT King's cyst. No signal changes within the muscles of the soft tissues to suggest a mass or an ongoing neuritis. Medullary cavity in the cortex of the bones is normal. Incidental note also is made of a King's cyst in the RIGHT knee. RIGHT lower extremity was included into the field of imaging. MR/MR lower leg LT wo con* [id number] IMPRESSION: 1. Small LEFT King's cyst. 2. No soft tissue or bone changes are identified of any concern. There is no m ass or signal changes. 3. Mild soft tissue edema.
== END 2025-05-02 14:14 | disposition home or self-care (01) ==
LOC: RAD 14:15
PROVIDERS: PCP Nurse Practitioner Family; Visit Provider Podiatrist Foot & Ankle Surgery
DX: D17.24 Benign lipomatous neoplasm of skin and subcutaneous tissue of left leg (principal); M79.662 Pain in left lower leg; M71.22 Synovial cyst of popliteal space [Baker], left knee; R60.9 Edema, unspecified
CPT/HCPCS: 73718

== ENCOUNTER 2025-05-23 10:26 | Emergency (ER) | payer MEDICARE, SELFPAY ==
[2025-05-23 10:27] VITALS: BP 153/128; PULSE 71; RESP 16; TEMP 37.1; O2SAT 97; BMI 40.3
--- NOTE | 2025-05-23 10:37 | ECG_ITS ---
[facility] Date: 2025-05-23 Pat Name: Franny Still Department: Room: Gender: Female Insurance Verification Representative: : 1965 Requested By: Elisha Maria Order Number: [id number] Seda MD: Rosetta Lloyd M.D. Measurements Intervals [place] Rate: 64 P: 64 SD: 164 QRS: 42 QRSD: 87 T: 56 QT: 389 QTc: 402 Interpretive Statements SINUS RHYTHM SEPTAL MYOCARDIAL INFARCTION , OF INDETERMINATE AGE [40+ ms Q WAVE IN V1/V2] No previous ECG available for comparison Electronically Signed On 05-23-2025 17:23:41 STUDENT SERVICES ADVISOR by Rosetta Lloyd M.D. [email or web address]
--- NOTE | 2025-05-23 10:37 | CTR_ITS ---
PROCEDURE INFORMATION: Exam: CT Head Without Contrast Exam date and time: 05/23/2025 10:44 AM Age: 59 years old Clinical indication: Pain; Headache; Additional info: SOUSA TECHNIQUE: Imaging protocol: Computed tomography of the head without contrast. Radiation optimization: All CT scans at this facility use at least one of these dose optimization techniques: automated exposure control; mA and/or kV adjustment per patient size (includes targeted exams where dose is matched to clinical indication); or iterative reconstruction. COMPARISON: MR head wo con* [id number] 10/29/2024 11:24 AM RADIATION DOSE METRICS: Total DLP (mGy-cm): 1167.3 FINDINGS: Brain: No acute hemorrhage, edema, or mass effect. Areas of periventricular and subcortical hypoattenuation likely reflecting chronic microvascular ischemic changes given the patient's age. Chronic right may radiata lacunar infarct. Cerebral ventricles: No ventriculomegaly. Paranasal sinuses: Partially visualized small left maxillary polyp/mucous retention cyst. The remaining paranasal sinuses are clear. Mastoid air cells: Visualized mastoid air cells are well aerated. Bones: Unremarkable. No acute fracture. Soft tissues: Unremarkable. CT/CT head wo con* [id number] IMPRESSION: 1. No acute hemorrhage, edema, or mass effect. 2. Mild chronic microvascular ischemic changes. 3. Chronic right may radiata lacunar infarct.
--- NOTE | 2025-05-23 10:42 | W.ED.GENADLT ---
HPI - General Adult General: Chief complaint: General Medical Stated complaint: hypertension - headache Time Seen by Provider: 05/23/25 10:27 Source: patient and EMS Mode of arrival: EMS Limitations: no limitations History of Present Illness: 59-year-old female who has a history of hypertension states she started having a headache last night and her blood pressure has been running higher than normal up to the 200s. States headaches currently 7 out of 10 she denies any chest pain denies any slurred speech she denies any worse or improving factors. States she has been taking her blood pressure medicine Associated symptoms: Reports headache(s) Related Data Previous Rx's ?Medication ?Instructions ?Recorded telmisartan 80 1 tab PO DAILY #30 tabs 10/11/24 mg-hydrochlorothiazide 25 mg tablet citalopram 20 mg tablet (Celexa) 20 mg PO DAILY #30 tabs 04/24/25 gabapentin 800 mg tablet See Rx Instructions .Route 04/24/25 .COMPLEX #30 tabs metoprolol succinate 25 mg 25 mg PO DAILY #30 tabs 04/24/25 tablet,extended release 24 hr cyclobenzaprine 10 mg tablet See Rx Instructions .Route 05/02/25 .COMPLEX #30 tabs ibuprofen 600 mg tablet See Rx Instructions .Route 05/02/25 .COMPLEX #30 tabs Allergies Allergy/AdvReac Type Severity Reaction Status Date / Time No Known Allergies Allergy Verified 04/15/25 13:57 Review of Systems Neuro: Reports: headache(s) [facility] ED PFSH: Surgical History H/O discectomy History of oophorectomy History of appendectomy H/O spinal fusion Social History Smoking and tobacco/nicotine status: never used tobacco/nicotine Quit status (tobacco/nicotine): has quit using Year quit tobacco: 2006 Former quit date comment: smoked 2-3 PPD x 30 yrs Second hand smoke exposure: Yes Alcohol intake: current Alcohol intake frequency: few times a week Alcohol type: hard liquor Substance/Drug Use: never Lives independently: Yes Household members: significant other Marital status: Life Partner Current occupational status: disabled Current gender identity: Female Special wilfredo needs: No Agree to transfusion: Yes Physical Exam Const: COMMON NORMALS: no acute distress, patient oriented x3 and healthy appearing HENMT: COMMON NORMALS: normocephalic and atraumatic HEAD & SCALP: normocephalic and atraumatic Eye: COMMON NORMALS: Equal, round and reactive pupils present and EOMs intact bilaterally PUPIL: Yes Equal, round and reactive pupils present Neck/C-Spine: COMMON NORMALS: full ROM and supple Chest: COMMONS NORMALS: normal inspection of the chest Resp: COMMON NORMALS: normal respiratory effort, No retractions, No use of accessory muscles and clear to auscultation bilaterally AUSCULTATION: clear to auscultation bilaterally Cardio: COMMON NORMALS: regular rate, regular rhythm and No murmurs present (Cardio) RATE: regular rate RHYTHM: regular rhythm Extremity: COMMON NORMALS: normal to inspection and full ROM Neuro: COMMON NORMALS: patient oriented x3, moves all extremities and no focal motor deficits Psych: COMMON NORMALS: mental status grossly normal, Normal thought process present and cooperative THOUGHT PROCESS: Normal thought process present Skin: COMMON NORMALS: no rashes or lesions noted and no wounds GENERAL SKIN EXAM: no rashes or lesions noted Course Vital Signs: Vital signs: Vital Signs Temperature 98.7 F 05/23/25 10:27 Pulse Rate 74 05/23/25 13:25 Respiratory Rate 16 05/23/25 10:27 Blood Pressure 161/93 05/23/25 13:25 Pulse Oximetry 96 05/23/25 13:25 Oxygen Delivery Me thod Room Air 05/23/25 10:27 [facility] - General Adult Medical Decision Making 59-year-old female presents with hypertension along with a headache. Differential includes subarachnoid hemorrhage, migraine headache, headache from her hypertension. Did perform CT head along with CT angio showed no signs of aneurysm or hemorrhage. Lab work here showed no significant abnormalities EKG here interpreted by me showed normal sinus rhythm heart rate [address] elevation QRS 87 QTc 398. Blood pressure did improve here her headache has resolved she has no signs of meningitis she is well-appearing here she is stable for discharge follow-up with PCP and return if worsening she understands agrees to plan Medical Records I reviewed the patient's medical records. Lab Data I reviewed the patient's lab results. 05/23/25 11:07 05/23/25 11:[address] 05/23/25 10:37 IMPRESSION: 1. No acute hemorrhage, edema, or mass effect. 2. Mild chronic microvascular ischemic changes. 3. Chronic right may radiata lacunar infarct. Head/Neck CTA 05/23/25 12:12 IMPRESSION: No acute hemorrhage, edema, or mass effect. IMPRESSION: 1. Mild stenosis of the origin of the left ICA by NASCET criteria. Approximately 20% stenosis is noted. 2. No right ICA stenosis. COMMENTS: Consistent with the [employer]'s Incidental Findings Committee white paper (J Am Angelia Radiol 2015): In patients aged 35 years and older with an incidental thyroid nodule equal to or greater than 1.[address], MRI or extrathyroidal US, further evaluation with dedicated thyroid US is recommended for patients with normal life expectancy and without comorbidities. For smaller nodules without suspicious features, no further evaluation or follow up is recommended. REFERENCES: NASCET CRITERIA. The degree of stenosis in the cervical segment of the internal carotid artery is based on NASCET criteria. Normal is no stenosis. Mild is less than 50% stenosis. Moderate is 50-69% stenosis. Severe is 70% to 99% stenosis. Total occlusion is no detectable patent lumen. Laboratory Results WBC 6.27 10^3/uL (3.29-11.43) 05/23/25 11:07 RBC 4.83 10^6/uL (3.85-5.65) 05/23/25 11:07 Hgb 13.50 g/dL (11.27-16.99) 05/23/25 11:07 Hct 42.3 % (36-47) 05/23/25 11:07 MCV 87.6 fl (85-98) 05/23/25 11:07 MCH 28.0 pg (27-33) 05/23/25 11:07 MCHC 31.9 g/dL (30-55) 05/23/25 11:07 RDW 15.0 % (12.1-15.1) 05/23/25 11:07 Plt Count 175 10^3/cmm (157-399) 05/23/25 11:07 MPV 10.9 fL (7.4-10.4) H 05/23/25 11:07 Neut % (Auto) 50.7 % 05/23/25 11:07 Lymph % (Auto) 38.0 % 05/23/25 11:07 [place] % (Auto) 7.3 % 05/23/25 11:07 Eos % (Auto) 3.2 % 05/23/25 11:07 Baso % (Auto) 0.5 % 05/23/25 11:07 Neut # (Auto) 3.18 10^3/uL (1.8-7.7) 05/23/25 11:07 Lymph # (Auto) 2.4 10^3/uL (0.8-4.8) 05/23/25 11:07 [place] # (Auto) 0.5 10^3/uL (0.2-0.9) 05/23/25 11:07 Eos # (Auto) 0.2 10^3/uL (0.0-0.8) 05/23/25 11:07 Baso # (Auto) 0.0 10^3/uL (0.0-0.1) 05/23/25 11:07 Nucleated RBC % (auto) 0 % 05/23/25 11:07 Nucleated RBCs # 0.0 /100WBC 05/23/25 11:07 Sodium 140 mmol/L (136-145) 05/23/25 11:07 Potassium 4.0 mmol/L (3.5-5.1) 05/23/25 11:07 Chloride 103 mmol/L (98-107) 05/23/25 11:07 Carbon Dioxide 27 mmol/L (22-29) 05/23/25 11:07 Anion Gap 14.0 (5-19) 05/23/25 11:07 BUN 15 mg/dL (8-23) 05/23/25 11:07 Creatinine 0.7 mg/dL (0.5-0.9) 05/23/25 11:07 GFR Calculation 85.1 mL/min (90-130) L 05/23/25 11:07 Glucose 118 mg/dL (65-115) H 05/23/25 11:07 Calculated Osmolality 292 mOsm/kg (285-295) 05/23/25 11:07 Calcium 8.6 mg/dL (8.5-10.5) 05/23/25 11:07 Total Bilirubin 0.3 mg/dL (0.15-1.2) 05/23/25 11:07 AST 17 U/L (0-32) 05/23/25 11:07 ALT 15 U/L (0-33) 05/23/25 11:07 Alkaline Phosphatase 90 U/L (35-105) 05/23/25 11:07 Total Protein 6.6 g/dL (6.6-8.7) 05/23/25 11:07 Albumin 4.1 g/dL (3.5-5.2) 05/23/25 11:07 Globulin 2.5 g/dL (1.3-4.6) 05/23/25 11:07 All radiology interpretation(s) finalized by discharge EKG Data EKG 1: I personally reviewed and interpreted this EKG as follows: EKG interpretation date: 05/23/25 EKG interpretation time: 10:37 Interpretation: nsr hr [address] elevation qrs 87 qtc 398 Computer generated interpretation: Head CT 05/23/25 10:37 IMPRESSION: 1. No acute hemorrhage, edema, or mass effect. 2. Mild chronic microvascular ischemic changes. 3. Chronic right may radiata lacunar infarct. Head/Neck CTA 05/23/25 12:12 IMPRESSION: No acute hemorrhage, edema, or mass effect. IMPRESSION: 1. Mild stenosis of the origin of the left ICA by NASCET criteria. Approximately 20% stenosis is noted. 2. No right ICA stenosis. COMMENTS: Consistent with the [employer]'s Incidental Findings Committee white paper (J Am Angelia Radiol 2015): In patients aged 35 years and older with an incidental thyroid nodule equal to or greater than 1.[address], MRI or extrathyroidal US, further evaluation with dedicated thyroid US is recommended for patients with normal life expectancy and without comorbidities. For smaller nodules without suspicious features, no further evaluation or follow up is recommended. REFERENCES: NASCET CRITERIA. The degree of stenosis in the cervical segment of the internal carotid artery is based on NASCET criteria. Normal is no stenosis. Mild is less than 50% stenosis. Moderate is 50-69% stenosis. Severe is 70% to 99% stenosis. Total occlusion is no detectable patent lumen. Discharge Plan Discharge Patient Disposition: Home Clinical Impression: Hypertension, Headache Condition: Stable Prescriptions: No Action telmisartan-hydrochlorothiazid 80-25 mg tablet 1 tab PO DAILY Qty: 30 5RF metoprolol succinate 25 mg tablet extended release 24 hr 25 mg PO DAILY Qty: 30 2RF gabapentin 800 mg tablet See Rx Instructions .ROUTE .COMPLEX Qty: 30 5RF Dose Instruction: TAKE 1 TABLET BY MOUTH THREE TIMES DAILY Rx Instructions: TAKE 1 TABLET BY MOUTH THREE TIMES DAILY citalopram [Celexa] 20 mg tablet 20 mg PO DAILY Qty: 30 5RF ibuprofen 600 mg tablet See Rx Instructions .ROUTE .COMPLEX Qty: 30 0RF Dose Instruction: TAKE ONE TABLET BY MOUTH DAILY NEEDED FOR PAIN Rx Instructions: TAKE ONE TABLET BY MOUTH DAILY NEEDED FOR PAIN cyclobenzaprine 10 mg tablet See Rx Instructions .ROUTE .COMPLEX Qty: 30 0RF Dose Instruction: TAKE ONE TABLET BY MOUTH THREE TIMES DAILY Rx Instructions: TAKE ONE TABLET BY MOUTH THREE TIMES DAILY Discharge Orders: Discharge ED (Routine); Ordered 05/23/25 Ordered By: Elisha Maria Referrals: Shayy Amato FNP-C [Primary Care Provider, Family Practice] - 4-7 days Discharge Diet: Advance as tolerated Discharge Activity: Resume usual activity Patient Instructions: Hypertension (ED), General Headache (ED) Print Language: [place] Coding Level of Care Code ED Tack Welder for Scott Gonzalze
[2025-05-23] MEDS: hyDRALAzine 20 mg/mL INJ 1 mL 10 MG IVP ×2 (11:08→11:29)
[2025-05-23 11:13] LABS: Hematocrit 42.3 % (36-47); Hemoglobin 13.50 g/dL (11.27-16.99); Mean Corpuscular HGB Conc 31.9 g/dL (30-55); Mean Corpuscular Hemoglobin 28.0 pg (27-33); Mean Corpuscular Volume 87.6 fl (85-98); Nucleated Red Blood Cells % 0 %; Platelet Count 175 10^3/cmm (157-399); Red Blood Count 4.83 10^6/uL (3.85-5.65); White Blood Count 6.27 10^3/uL (3.29-11.43)
--- NOTE | 2025-05-23 11:17 | PC.PHAR ---
PATIENT STATES SHE TOOK 4 METOPROLOL SUCCINATE 25MG FROM 12 AM TO 8 AM .
[2025-05-23 11:23] VITALS: BP 198/98; PULSE 65; O2SAT 98
--- NOTE | 2025-05-23 11:23 | PC.PHAR ---
PATIENT STTAES SHE TAKES HER MEDICATION AROUND MIDNIGHT
[2025-05-23 11:29] LABS: Alanine Aminotransferase 15 U/L (0-33); Albumin Level 4.1 g/dL (3.5-5.2); Alkaline Phosphatase 90 U/L (35-105); Anion Gap 14.0 (5-19); Aspartate Amino Transferase 17 U/L (0-32); Blood Urea Nitrogen 15 mg/dL (8-23); Calcium 8.6 mg/dL (8.5-10.5); Carbon Dioxide 27 mmol/L (22-29); Chloride 103 mmol/L (98-107); Globulin 2.5 g/dL (1.3-4.6); Glucose 118 mg/dL (65-115); Osmolality Calculated 292 mOsm/kg (285-295); Potassium 4.0 mmol/L (3.5-5.1); Sodium 140 mmol/L (136-145); Total Protein 6.6 g/dL (6.6-8.7)
[2025-05-23 11:30] VITALS: BP 185/108; PULSE 63; O2SAT 97
[2025-05-23 12:00] VITALS: BP 173/119; PULSE 69; O2SAT 99
--- NOTE | 2025-05-23 12:12 | CTR_ITS ---
PROCEDURE INFORMATION: Exam: CTA Head With Contrast, Arteriography Exam date and time: 05/23/2025 12:44 PM Age: 59 years old Clinical indication: Pain; Headache; Additional info: SOUSA TECHNIQUE: Imaging protocol: Computed tomographic angiography of the head with contrast. Exam focused on the arteries. 3D rendering (Not supervised by radiologist): MIP and/or 3D reconstructed images were created by the technologist. Radiation optimization: All CT scans at this facility use at least one of these dose optimization techniques: automated exposure control; mA and/or kV adjustment per patient size (includes targeted exams where dose is matched to clinical indication); or iterative reconstruction. Contrast material: [id number]; Contrast volume: 100 ml; Contrast route: INTRAVENOUS (IV); COMPARISON: CT head wo con* [id number] 05/23/2025 10:44 AM RADIATION DOSE METRICS: Total DLP (mGy-cm): 475.9 FINDINGS: ANTERIOR CIRCULATION: Right internal carotid artery: Intracranial segment is patent with no significant stenosis. No aneurysm. Right middle cerebral artery: No occlusion or significant stenosis. No aneurysm. Right anterior cerebral artery: No occlusion or significant stenosis. No aneurysm. Left internal carotid artery: Intracranial segment is patent with no significant stenosis. No aneurysm. Left middle cerebral artery: No occlusion or significant stenosis. No aneurysm. Left anterior cerebral artery: No occlusion or significant stenosis. No aneurysm. POSTERIOR CIRCULATION: Right vertebral artery: No occlusion or significant stenosis. No aneurysm. Left vertebral artery: No occlusion or significant stenosis. No aneurysm. Basilar artery: No occlusion or significant stenosis. No aneurysm. Right posterior cerebral artery: No occlusion or significant stenosis. No aneurysm. Left posterior cerebral artery: No occlusion or significant stenosis. No aneurysm. Brain: No acute hemorrhage, edema, or mass effect. No parenchymal arteriovenous malformation. Cerebral ventricles: No hydrocephalus. Bones/joints: Unremarkable. No acute fracture. Soft tissues: Unremarkable. PROCEDURE INFORMATION: Exam: CTA Neck With Contrast Exam date and time: 05/23/2025 12:44 PM Age: 59 years old Clinical indication: Pain; Headache; Additional info: SOUSA TECHNIQUE: Imaging protocol: Computed tomographic angiography of the neck with contrast. Exam focused on the cervical segments of the vasculature. 3D rendering (Not supervised by radiologist): MIP and/or 3D reconstructed images were created by the technologist. Radiation optimization: All CT scans at this facility use at least one of these dose optimization techniques: automated exposure control; mA and/or kV adjustment per patient size (includes targeted exams where dose is matched to clinical indication); or iterative reconstruction. Contrast material: [id number]; Contrast volume: 100 ml; Contrast route: INTRAVENOUS (IV); COMPARISON: CT neck w con* [id number] 03/12/2025 11:57 AM RADIATION DOSE METRICS: Total DLP (mGy-cm): 475.9 FINDINGS: Right common carotid artery: No stenosis. No dissection or occlusion. Right internal carotid artery: No stenosis of the extracranial segment. No dissection or occlusion. Right external carotid artery: No occlusion or stenosis of the origin. Left common carotid artery: No stenosis. No dissection or occlusion. Left internal carotid artery: Mild stenosis of the origin of the left ICA. Less than 50% stenosis is noted. Left external carotid artery: No occlusion or stenosis of the origin. Right vertebral artery: No stenosis. No dissection or occlusion. Left vertebral artery: No stenosis. No dissection or occlusion. Thyroid: Subcentimeter bilateral thyroid nodules. Soft tissues: Normal. No significant soft tissue swelling. Bones/joints: No acute fracture. Lungs: Visualized lung apices are clear. CT/CT angio headneck* [id number] IMPRESSION: No acute hemorrhage, edema, or mass effect. IMPRESSION: 1. Mild stenosis of the origin of the left ICA by NASCET criteria. Approximately 20% stenosis is noted. 2. No right ICA stenosis. COMMENTS: Consistent with the [employer]'s Incidental Findings Committee white paper (J Am Angelia Radiol 2015): In patients aged 35 years and older with an incidental thyroid nodule equal to or greater than 1.[address], MRI or extrathyroidal US, further evaluation with dedicated thyroid US is recommended for patients with normal life expectancy and without comorbidities. For smaller nodules without suspicious features, no further evaluation or follow up is recommended. REFERENCES: NASCET CRITERIA. The degree of stenosis in the cervical segment of the internal carotid artery is based on NASCET criteria. Normal is no stenosis. Mild is less than 50% stenosis. Moderate is 50-69% stenosis. Severe is 70% to 99% stenosis. Total occlusion is no detectable patent lumen.
[2025-05-23] MEDS: hyDRALAzine 20 mg/mL INJ 1 mL IVP (12:17)
[2025-05-23] MEDS: diphenhydrAMINE 50 mg/mL SDV 1mL IVP (12:39)
[2025-05-23] MEDS: metoclopramide 5 mg/mL SDV 2 mL 10 MG IVP (12:39)
[2025-05-23] MEDS: iohexol 350 mg/mL 500 mL Btl (per mL) IV (12:54)
[2025-05-23 13:17] VITALS: BP 159/105; PULSE 74; O2SAT 95
[2025-05-23 13:25] VITALS: BP 161/93; PULSE 74; O2SAT 96
== END 2025-05-23 13:26 | disposition home or self-care (01) ==
PROVIDERS: Emergency Provider Emergency Medicine; PCP Nurse Practitioner Family
DX: I10 Essential (primary) hypertension (principal); R51.9 Headache, unspecified; Z87.891 Personal history of nicotine dependence
CPT/HCPCS: 36415; 70450; 70496; 70498; 80053; 85025; 93005; 96374; 96375; 96376; 99285; J0360; J1200; J1885; J2765

== ENCOUNTER 2025-06-05 13:32 | Outpatient (CLI) | payer MEDICARE, SELFPAY | END 2025-06-05 13:33 | disposition home or self-care (01) | LOC: RAD 13:32 | PROVIDERS: PCP Nurse Practitioner Family; Visit Provider Student in an Organized Health Care Education/Training Program | DX: R92.8 Other abnormal and inconclusive findings on diagnostic imaging of breast (principal); N60.81 Other benign mammary dysplasias of right breast | CPT/HCPCS: 19083; 88305 ==